=== PATIENT | female | born 1940 | race Caucasian/White ===

== ENCOUNTER 2017-12-09 06:05 | Day surgery (SDC) | payer MEDICARE, SELFPAY ==
--- NOTE | 2017-12-06 12:48 | POEE_ITS ---
History of Present Illness Chief Complaint: Progressive decreased vision, left eye Narrative: Patient is a 76-year-old lady who presented with complaints of progressive decreased vision in her left eye. She has a history of amblyopia of the right eye, with the right eye always having been her weaker eye. She now notes progressive decreased vision at both distance and near her left eye. She was noted to have a significant nuclear cataract in the left eye as well as a poorly dilating pupil, narrow angles, and high hyperopia. 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 The option of cataract surgery was offered to the patient and she wished to proceed. NOTE: The Chief Complaint, HPI, Past Medical History, Past Surgical History, Family History, Social History, Medications, and complete Ophthalmic Exam with detailed Assessment and Plan have already been documented in the patient's outpatient ophthalmic record and/or in the Primary Care Provider's pre-op history and physical, and are not covered again in detail here. PFSH Family History Mother Heart disease Father Heart disease Sister Heart disease Sister No problems noted. Sister No problems noted. Son No problems noted. Son No problems noted. Son No problems noted. Daughter No problems noted. Social History household members: other details: 2 current occupational status: retired frequency: 5-6 times per week duration: 15-30 minutes/day Smoking/Tobacco Use Status: Never alcohol intake: never substance use type: does not use john/jewish: Scientologist special john needs: No Surgical History section Ligation of fallopian tube Meds Home Medications Medication Instructions Recorded Confirmed Type meloxicam [Mobic] 15 mg PO DAILY PRN #30 tab-cap 09/05/17 12/04/17 History acetaminophen 500 mg tablet 500 mg PO TID tab 11/28/17 12/06/17 History gabapentin 100 mg capsule See Label Instructions PO DAILY 11/28/17 12/04/17 History cap hydrochlorothiazide 12.5 mg capsule 12.5 mg PO DAILY 11/28/17 12/04/17 History levothyroxine 75 mcg capsule 75 mcg PO DAILY 11/28/17 12/04/17 History ranitidine 150 mg tablet 150 mg PO DAILY 11/28/17 12/04/17 History triamcinolone acetonide 0.1 % 1 applic TP HS gm 11/28/17 12/04/17 History topical cream Allergies Allergy/AdvReac Type Severity Reaction Status Date / Time No Known Drug Allergies Allergy Unknown Unverified 10/22/17 10:44 Exam OCULAR EXAM:: Visual acuity at distance: 2050 right eye, 20/40 left eye Pupils: Pupils equal, round, and reactive without afferent pupillary defect IOP: 18 right eye, 16 left eye Extraocular Motility: Normal Pertinent Slit Lamp Findings: Significant for pupils dilating only to 4 mm in each eye. Narrow anterior chamber angles with intermediate anterior chamber depth. 2+ brunescent nuclear cataract is present OU. Dilated Funduscopic Examination: Disc cupping is 0.3 OD, 0.5 OS. Optic disks have normal color. The optic nerves have good perfusion and normal color. The retinal vasculature is normal without significant tortuosity or abnormality. The maculas are normal in appearance with normal contour and foveal reflex appropriate for age. The peripheral retina and vitreous are normal. BRIGHTNESS ACUITY TESTING (BAT):: Off left eye 20/40 Low: 20/50 Medium: 20/60 High: 20/70 Assessment and Plan (1) Anatomical narrow angle, left eye: Current visit: No Status: Acute High hyperopia with narrow angles, short axial length, and intermediate to shallow anterior chamber depth. Corneal endothelial protection during surgery will be obtained with dispersive viscoelastic. (2) Nuclear sclerotic cataract of left eye: Current visit: No Status: Acute Assessment: Visually significant cataract, left eye, with poorly dilating pupil, narrow angles, shallow anterior chamber, short axial length Plan: Cataract extraction with intraocular lens implantation, left eye, with pupillary expansion device and dispersive viscoelastic. Note: NOTE:: The details of the planned surgery, including the risks, indications, limitations,expectations,outcome and possible complications were explained to the patient. The patient understands the complications including, but not limited to: infection, hemorrhage, posterior dislocation of the lens or nuclear fragments which may require the intervention of a vitreoretinal surgeon, possible loss of the eye, or from anesthetic complications. The patient has been made aware of the option of not having surgery, that vision following surgery may not be equal to that prior to surgery, and that the planned surgery may not achieve the intended results. Following this discussion, which the patient appeared to understand, the patient wishes to proceed with cataract surgery with lens implantation of the affected eye to improve and maximize vision.
[2017-12-09 06:19] VITALS: BP 131/75; PULSE 76; RESP 20; TEMP 36.6; O2SAT 99
[2017-12-09] MEDS: Lidocaine 2% Jelly 6 ML SYR (07:31)
[2017-12-09] MEDS: Balanced Salt Soln.-PLUS 500 ML BAG (07:38)
[2017-12-09] MEDS: Lidocaine 1% Pres-Free 5 ML VIAL (07:38)
[2017-12-09] MEDS: Povidone-Iodine Ophth 30 ML BTL (07:57)
--- NOTE | 2017-12-09 08:05 | W.PM.DSUDISC ---
Discharge Plan Discharge Details Reason For Visit: CATARACT OS Attending Provider: Frank Cardoso Primary Care Provider: Sameera Elam Home Meds and New Rx's Prescriptions: No Action acetaminophen 500 mg tablet 500 mg PO TID RF: 0 triamcinolone acetonide 0.1 % cream 1 applic TP HS RF: 0 ranitidine HCl [Acid Cheese Production Supervisor (ranitidine)] 150 mg tablet 150 mg PO DAILY RF: 0 hydrochlorothiazide 12.5 mg capsule 12.5 mg PO DAILY RF: 0 gabapentin 100 mg capsule See Patient Comments PO DAILY RF: 0 levothyroxine 75 mcg capsule 75 mcg PO DAILY RF: 0 meloxicam [Mobic] 15 MG tablet 15 mg PO DAILY PRNQty: 30 RF: 0 Discharge Instructions Stand Alone Forms: Post-op Topical Cataract, Cristina Scott (DSU) DS: Diagnosis Discharge Diagnosis (1) Anatomical narrow angle, left eye: Status: Resolved (2) Nuclear sclerotic cataract of left eye: Status: Resolved
--- NOTE | 2017-12-09 08:06 | W.PM.OP ---
Date of service: 12/09/17 Time of Service: 08:06 Operative Note Date of procedure: 12/09/17 Pre-op diagnosis: Cataract, left eye, with poorly dilating pupil Post-op diagnosis: same Procedure: Cataract extraction by phacoemulsification with intraocular lens implantation, left eye, using pupillary expansion device Surgeon: Frank Cardoso Anesthesia: MAC and local (sub-tenon's anesthetic infiltration) Estimated blood loss (mL): 0 Pathology: none sent Complications: None Patient was transported to: same day Patient's condition: stable Implants: Ras [employer] Ras / [employer] Tecnis [id number] Indications: Progressive decreased vision, left eye Procedure Description: CATARACT SURGERY OPERATIVE REPORT PREOPERATIVE DIAGNOSIS: 1. Nuclear cataract, left eye 2. Poorly dilating pupil, left eye 3. High hyperopia with short axial length, narrow angles, shallow chamber POSTOPERATIVE DIAGNOSIS: Same OPERATION: Cataract extraction using phacoemulsification with posterior chamber intraocular lens implant, left eye. Pupillary dilation and iris stabilization using Malyugin Ring IOL; IOL Tool Turret Lathe Set Up Operator/Model: Ras & Ras / DEE Tecnis [id number] IOL Power: +25.50 diopters IOL Serial Number: [id number] Optic Diameter: 6.0 mm Haptic/Overall Diameter: 13.00 mm PHACO INFO:Dashawn Embrace Pet Insuranceurion Vision System with OZil and Active Fluidics Cumulative Dispersed Energy (CDE): 7.05 seconds SURGEON: Frank Cardoso MD, JADA ANESTHESIA:Monitored Anesthesia Care (MAC), with local sub-tenon's anesthetic infiltration COMPLICATIONS: None SPECIMENS: None INDICATIONS FOR PROCEDURE: The patient is a 77-year-old lady with history of high hyperopia and narrow angles who presented with complaints of diminished visual acuity in both eyes. She was noted to have visually significant nuclear cataracts in both eyes with narrow angles, shallow anterior chamber, and poorly dilating pupil. The option of cataract surgery was offered to the patient and she wished to proceed. PROCEDURE: The correct surgical eye was identified and marked as the left eye and the pupil was dilated in the preoperative area using mydriatics, cycloplegics, and NSAIDS (except in aspirin allergic patients). The dilated pupil size was only 4mm mm. Oral sedation was administered in the form of an Imprimis MKO Melt (midazolam 3mg/ketamine 25mg/ondansetron 2mg). The patient was brought to the operating room where cardiopulmonary monitoring was instituted and surgical time-out was performed, confirming the correct operative eye and IOL power. Topical anesthesia was administered and ophthalmic povidone-iodine 5% was instilled into the conjunctival fornices. Lidocaine gel was applied to the cornea and the saumya-ocular area was prepped with Betadine 10% solution and draped in the usual sterile fashion for intraocular surgery. Steri-strips were used to cover the lashes and lid margins and an adhesive eye drape was placed. Care was taken to isolate the lashes and lid margins under the Steri-strips and adhesive eye drape. A lid speculum was placed between the lids of the operative eye and the Nader-Sunitha operating microscope was maneuvered into position. Lee scissors were then used to make a conjunctival buttonhole approximately 6mm posterior to the limbus in the inferonasal quadrant. Blunt dissection was carried out to expose bare sclera, and a blunt-tipped sub-tenon?s anesthesia cannula was introduced and passed posteriorly along the globe where non-preserved plain lidocaine was injected into posterior sub-Tenon?s space. A sideport knife was used to make a paracentesis port at the 12:00 position and air was injected into anterior chamber, followed by Vision Blue, which was painted over the anterior capsule and then irrigated out with BSS. The anterior chamber was filled with Healon GV. A 2.4mm keratome knife was used to create a half-thickness groove at the limbus and then to construct a three-plane near-clear corneal tunnel extending 2.0mm into clear cornea at the 3:00 position. A 6.25mm Malyugin Ring was then inserted into the pupillary space and engaged with the Kuglen hook. A flap was raised on the anterior capsule and capsulorhexis forceps were used to complete a continuous curvilinear capsulorhexis of 5.0mm. Balanced salt solution was then used to perform cortical cleaving hydrodissection and nuclear hydrodelineation until the lens could be freely rotated within the capsular bag. The lens nucleus was then disassembled and removed within the capsular bag and iris plane using phacoemulsification. Residual cortical material was removed using the 45-degree angled silicone I/A tip with 0.3mm port. The posterior capsule was carefully polished to remove as much residual lens epithelial cells as safely possible. The capsular bag was then inflated and the anterior chamber deepened with viscoelastic. The lens implant described above was inserted into the capsular bag using the DEE [place] Injector. A Kuglen hook was used to dial the IOL into position. The Malyugin Ring was removed in the reverse order of its insertion. Residual viscoelastic was then removed first from posterior to the IOL, then from the anterior chamber using the I/A handpiece. The lens implant was noted to center nicely within the capsular bag. The incisions were stromally hydrated, and the anterior chamber was reformed using BSS. Then 0.4cc of moxifloxacin 1.5mg/ml were injected into the capsular bag and anterior chamber. The incisions were checked with a Weck spear and found to be secure. Several drops of ophthalmic povidone-iodine 5% were then applied to the eye followed by two drops of Imprimis combination moxifloxacin/dexamethasone solution. The drapes were removed and a clear plastic protective eye shield was placed over the eye. The patient was then returned to [facility] Surgery in stable condition.
[2017-12-09 08:35] VITALS: BP 111/61; PULSE 80; RESP 20; TEMP 36.6; O2SAT 96
== END 2017-12-09 08:40 | disposition home or self-care (01) ==
LOC: SUR 06:05
PROVIDERS: Visit Provider Ophthalmology
PROC: (CPT 66982; principal; 2017-12-09 07:30)
DX: H25.12 Age-related nuclear cataract, left eye (principal); H57.09 Other anomalies of pupillary function; H52.02 Hypermetropia, left eye; H40.032 Anatomical narrow angle, left eye; K21.9 Gastro-esophageal reflux disease without esophagitis
CPT/HCPCS: 66982; V2632

== ENCOUNTER 2017-12-23 06:42 | Day surgery (SDC) | payer MEDICARE, SELFPAY ==
--- NOTE | 2017-12-21 09:16 | W.PIPPEYE ---
History of Present Illness Chief Complaint: Progressive decreased vision, right eye Narrative: The patient is a 76-year-old lady with history of high hyperopia with narrow angles and intermediate anterior chamber depth with moderate cataracts. She noted progressive decreased vision at both distance and near and was having significant difficulty driving. She has a history of amblyopia of the right eye due to her high hyperopia. She underwent cataract surgery in the left eye on 12/09/2017 and postoperatively is doing well with best corrected vision of 20/20 in the left eye. She now presents for cataract surgery in the right eye. NOTE: The Chief Complaint, HPI, Past Medical History, Past Surgical History, Family History, Social History, Medications, and complete Ophthalmic Exam with detailed Assessment and Plan have already been documented in the patient's outpatient ophthalmic record and are not covered again in detail here. [facility] Family History Mother Heart disease Father Heart disease Sister Heart disease Sister No problems noted. Sister No problems noted. Son No problems noted. Son No problems noted. Son No problems noted. Daughter No problems noted. Social History household members: other details: 2 current occupational status: retired frequency: 5-6 times per week duration: 15-30 minutes/day Smoking/Tobacco Use Status: Former Tobacco Use alcohol intake: never substance use type: does not use john/latter day: [employer] special john needs: No Surgical History S/P cataract surgery (Resolved) section (12/09/17) Ligation of fallopian tube Meds Home Medications Medication Instructions Recorded Confirmed Type meloxicam [Mobic] 15 mg PO DAILY PRN #30 tab-cap 09/05/17 12/04/17 History acetaminophen 500 mg tablet 500 mg PO TID tab 11/28/17 12/06/17 History gabapentin 100 mg capsule See Label Instructions PO DAILY 11/28/17 12/09/17 History cap hydrochlorothiazide 12.5 mg capsule 12.5 mg PO DAILY 11/28/17 12/09/17 History levothyroxine 75 mcg capsule 75 mcg PO DAILY 11/28/17 12/09/17 History ranitidine 150 mg tablet 150 mg PO DAILY 11/28/17 12/09/17 History triamcinolone acetonide 0.1 % 1 applic TP HS gm 11/28/17 12/04/17 History topical cream Allergies Allergy/AdvReac Type Severity Reaction Status Date / Time No Known Drug Allergies Allergy Unknown Unverified 12/09/17 06:10 Exam OCULAR EXAM:: Visual acuity at distance: [] Pupils: [] IOP: [] Extraocular Motility: [] Pertinent Slit Lamp Findings: [] Dilated Funduscopic Examination: [] BRIGHTNESS ACUITY TESTING (BAT):: Off [] Low:[] Medium:[] High:[] Assessment and Plan (1) Anatomical narrow angle of right eye: Current visit: No Status: Acute (2) Nuclear sclerotic cataract of right eye: Current visit: No Status: Acute Note: NOTE:: The details of the planned surgery, including the risks, indications,limitations,expectations,outcome and possible complications were explained to the patient. The patient understands the complications including, but not limited to: infection, hemorrhage, posterior dislocation of the lens or nuclear fragments which may require the intervention of a vitreoretinal surgeon, possible loss of the eye, or from anesthetic complications. The patient has been made aware of the option of not having surgery, that vision following surgery may not be equal to that prior to surgery, and that the planned surgery may not achieve the intended results. Following this discussion, which the patient appeared to understand, the patient wishes to proceed with cataract surgery with lens implantation of the affected eye to improve and maximize vision.
--- NOTE | 2017-12-21 09:23 | POEE_ITS ---
History of Present Illness Chief Complaint: Progressive decreased vision, right eye Narrative: The patient is a 76-year-old lady with history of high hyperopia with narrow angles and intermediate anterior chamber depth with moderate cataracts. She noted progressive decreased vision at both distance and near and was having significant difficulty driving. She has a history of amblyopia of the right eye due to her high hyperopia. She underwent cataract surgery in the left eye on 12/09/2017 and postoperatively is doing well with best corrected vision of 20/20 in the left eye. She now presents for cataract surgery in the right eye. NOTE: The Chief Complaint, HPI, Past Medical History, Past Surgical History, Family History, Social History, Medications, and complete Ophthalmic Exam with detailed Assessment and Plan have already been documented in the patient's outpatient ophthalmic record and are not covered again in detail here. [facility] Family History Mother Heart disease Father Heart disease Sister Heart disease Sister No problems noted. Sister No problems noted. Son No problems noted. Son No problems noted. Son No problems noted. Daughter No problems noted. Social History household members: other details: 2 current occupational status: retired frequency: 5-6 times per week duration: 15-30 minutes/day Smoking/Tobacco Use Status: Former Tobacco Use alcohol intake: never substance use type: does not use john/baptist: Spiritism special john needs: No Surgical History S/P cataract surgery (Resolved) section (12/09/17) Ligation of fallopian tube Meds Home Medications Medication Instructions Recorded Confirmed Type meloxicam [Mobic] 15 mg PO DAILY PRN #30 tab-cap 09/05/17 12/04/17 History acetaminophen 500 mg tablet 500 mg PO TID tab 11/28/17 12/06/17 History gabapentin 100 mg capsule See Label Instructions PO DAILY 11/28/17 12/09/17 History cap hydrochlorothiazide 12.5 mg capsule 12.5 mg PO DAILY 11/28/17 12/09/17 History levothyroxine 75 mcg capsule 75 mcg PO DAILY 11/28/17 12/09/17 History ranitidine 150 mg tablet 150 mg PO DAILY 11/28/17 12/09/17 History triamcinolone acetonide 0.1 % 1 applic TP HS gm 11/28/17 12/04/17 History topical cream Allergies Allergy/AdvReac Type Severity Reaction Status Date / Time No Known Drug Allergies Allergy Unknown Unverified 12/09/17 06:10 Exam OCULAR EXAM:: Visual acuity at distance: [] Pupils: [] IOP: [] Extraocular Motility: [] Pertinent Slit Lamp Findings: [] Dilated Funduscopic Examination: [] BRIGHTNESS ACUITY TESTING (BAT):: Off [] Low:[] Medium:[] High:[] Assessment and Plan (1) Anatomical narrow angle of right eye: Current visit: No Status: Acute (2) Nuclear sclerotic cataract of right eye: Current visit: No Status: Acute Note: NOTE:: The details of the planned surgery, including the risks, indications, limitations,expectations,outcome and possible complications were explained to the patient. The patient understands the complications including, but not limited to: infection, hemorrhage, posterior dislocation of the lens or nuclear fragments which may require the intervention of a vitreoretinal surgeon, possible loss of the eye, or from anesthetic complications. The patient has been made aware of the option of not having surgery, that vision following surgery may not be equal to that prior to surgery, and that the planned surgery may not achieve the intended results. Following this discussion, which the patient appeared to understand, the patient wishes to proceed with cataract surgery with lens implantation of the affected eye to improve and maximize vision.
--- NOTE | 2017-12-21 09:43 | W.PIPPEYE ---
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 She noted progressive decreased vision in both eyes at both distance and near. She underwent cataract surgery on the left eye on 12/09/2017. Postoperatively she has regained best corrected vision of 20/20 in the left eye. She now presents for cataract surgery in the right eye. NOTE: The Chief Complaint, HPI, Past Medical History, Past Surgical History, Family History, Social History, Medications, and complete Ophthalmic Exam with detailed Assessment and Plan have already been documented in the patient's outpatient ophthalmic record and are not covered again in detail here. [facility] Family History Mother Heart disease Father Heart disease Sister Heart disease Sister No problems noted. Sister No problems noted. Son No problems noted. Son No problems noted. Son No problems noted. Daughter No problems noted. Medical History Nuclear sclerotic cataract of right eye (Acute) Anatomical narrow angle of right eye (Acute) Nuclear sclerotic cataract of left eye (Resolved 12/09/17) Anatomical narrow angle, left eye (Resolved 12/09/17) Social History household members: other details: 2 current occupational status: retired frequency: 5-6 times per week duration: 15-30 minutes/day Smoking/Tobacco Use Status: Former Tobacco Use alcohol intake: never substance use type: does not use john/yazdanism: Pentecostal special john needs: No Surgical History S/P cataract surgery (Resolved 12/09/17) section Ligation of fallopian tube Meds Home Medications Medication Instructions Recorded Confirmed Type meloxicam [Mobic] 15 mg PO DAILY PRN #30 tab-cap 09/05/17 12/04/17 History acetaminophen 500 mg tablet 500 mg PO TID tab 11/28/17 12/06/17 History gabapentin 100 mg capsule See Label Instructions PO DAILY 11/28/17 12/09/17 History cap hydrochlorothiazide 12.5 mg capsule 12.5 mg PO DAILY 11/28/17 12/09/17 History levothyroxine 75 mcg capsule 75 mcg PO DAILY 11/28/17 12/09/17 History ranitidine 150 mg tablet 150 mg PO DAILY 11/28/17 12/09/17 History triamcinolone acetonide 0.1 % 1 applic TP HS gm 11/28/17 12/04/17 History topical cream Allergies Allergy/AdvReac Type Severity Reaction Status Date / Time No Known Drug Allergies Allergy Unknown Unverified 12/09/17 06:10 Exam OCULAR EXAM:: Visual acuity at distance: Corrected visual acuity 20/50 right eye, 20/20 left eye Pupils: Pupils equal, round, and reactive without afferent pupillary defect IOP: 18 OD, 16 OS Extraocular Motility: Normal Pertinent Slit Lamp Findings: Significant for pupils dilating to 4 mm OU. Narrow anterior chamber angle with intermediate anterior chamber depth in the right eye with 2-3+ nuclear cataract. The left eye has a well-positioned PCIOL with clear posterior capsule. Dilated Funduscopic Examination: Disc cupping is 0.3 OD 0.5 OS with good color. The optic nerves have good perfusion and normal color. The retinal vasculature is normal without significant tortuosity or abnormality. The maculas are normal in appearance with normal contour and foveal reflex appropriate for age. The peripheral retina and vitreous are normal. BRIGHTNESS ACUITY TESTING (BAT):: Off right eye 20/50 Low: 20/50 Medium: 20/60 High: 20/70 Assessment and Plan (1) Nuclear sclerotic cataract of right eye: Current visit: No Status: Acute Assessment: Visually significant cataract, right eye. Plan: Cataract extraction with intraocular lens implantation, right eye (2) Nuclear sclerotic cataract of left eye: Current visit: No Status: Resolved (3) Anatomical narrow angle, left eye: Current visit: No Status: Resolved (4) Anatomical narrow angle of right eye: Current visit: No Status: Acute Note: NOTE:: The details of the planned surgery, including the risks, indications,limitations,expectations,outcome and possible complications were explained to the patient. The patient understands the complications including, but not limited to: infection, hemorrhage, posterior dislocation of the lens or nuclear fragments which may require the intervention of a vitreoretinal surgeon, possible loss of the eye, or from anesthetic complications. The patient has been made aware of the option of not having surgery, that vision following surgery may not be equal to that prior to surgery, and that the planned surgery may not achieve the intended results. Following this discussion, which the patient appeared to understand, the patient wishes to proceed with cataract surgery with lens implantation of the affected eye to improve and maximize vision.
--- NOTE | 2017-12-21 09:51 | POEE_ITS ---
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 She noted progressive decreased vision in both eyes at both distance and near. She underwent cataract surgery on the left eye on 12/09/2017. Postoperatively she has regained best corrected vision of 20/20 in the left eye. She now presents for cataract surgery in the right eye. NOTE: The Chief Complaint, HPI, Past Medical History, Past Surgical History, Family History, Social History, Medications, and complete Ophthalmic Exam with detailed Assessment and Plan have already been documented in the patient's outpatient ophthalmic record and are not covered again in detail here. [facility] Family History Mother Heart disease Father Heart disease Sister Heart disease Sister No problems noted. Sister No problems noted. Son No problems noted. Son No problems noted. Son No problems noted. Daughter No problems noted. Medical History Nuclear sclerotic cataract of right eye (Acute) Anatomical narrow angle of right eye (Acute) Nuclear sclerotic cataract of left eye (Resolved 12/09/17) Anatomical narrow angle, left eye (Resolved 12/09/17) Social History household members: other details: 2 current occupational status: retired frequency: 5-6 times per week duration: 15-30 minutes/day Smoking/Tobacco Use Status: Former Tobacco Use alcohol intake: never substance use type: does not use john/spiritism: Hinduism special john needs: No Surgical History S/P cataract surgery (Resolved 12/09/17) section Ligation of fallopian tube Meds Home Medications Medication Instructions Recorded Confirmed Type meloxicam [Mobic] 15 mg PO DAILY PRN #30 tab-cap 09/05/17 12/04/17 History acetaminophen 500 mg tablet 500 mg PO TID tab 11/28/17 12/06/17 History gabapentin 100 mg capsule See Label Instructions PO DAILY 11/28/17 12/09/17 History cap hydrochlorothiazide 12.5 mg capsule 12.5 mg PO DAILY 11/28/17 12/09/17 History levothyroxine 75 mcg capsule 75 mcg PO DAILY 11/28/17 12/09/17 History ranitidine 150 mg tablet 150 mg PO DAILY 11/28/17 12/09/17 History triamcinolone acetonide 0.1 % 1 applic TP HS gm 11/28/17 12/04/17 History topical cream Allergies Allergy/AdvReac Type Severity Reaction Status Date / Time No Known Drug Allergies Allergy Unknown Unverified 12/09/17 06:10 Exam OCULAR EXAM:: Visual acuity at distance: Corrected visual acuity 20/50 right eye , 20/20 left eye Pupils: Pupils equal, round, and reactive without afferent pupillary defect IOP: 18 OD, 16 OS Extraocular Motility: Normal Pertinent Slit Lamp Findings: Significant for pupils dilating to 4 mm OU. Narrow anterior chamber angle with intermediate anterior chamber depth in the right eye with 2-3+ nuclear cataract. The left eye has a well-positioned PCIOL with clear posterior capsule. Dilated Funduscopic Examination: Disc cupping is 0.3 OD 0.5 OS with good color. The optic nerves have good perfusion and normal color. The retinal vasculature is normal without significant tortuosity or abnormality. The maculas are normal in appearance with normal contour and foveal reflex appropriate for age. The peripheral retina and vitreous are normal. BRIGHTNESS ACUITY TESTING (BAT):: Off right eye 20/50 Low: 20/50 Medium: 20/60 High: 20/70 Assessment and Plan (1) Nuclear sclerotic cataract of right eye: Current visit: No Status: Acute Assessment: Visually significant cataract, right eye. Plan: Cataract extraction with intraocular lens implantation, right eye (2) Nuclear sclerotic cataract of left eye: Current visit: No Status: Resolved (3) Anatomical narrow angle, left eye: Current visit: No Status: Resolved (4) Anatomical narrow angle of right eye: Current visit: No Status: Acute Note: NOTE:: The details of the planned surgery, including the risks, indications, limitations,expectations,outcome and possible complications were explained to the patient. The patient understands the complications including, but not limited to: infection, hemorrhage, posterior dislocation of the lens or nuclear fragments which may require the intervention of a vitreoretinal surgeon, possible loss of the eye, or from anesthetic complications. The patient has been made aware of the option of not having surgery, that vision following surgery may not be equal to that prior to surgery, and that the planned surgery may not achieve the intended results. Following this discussion, which the patient appeared to understand, the patient wishes to proceed with cataract surgery with lens implantation of the affected eye to improve and maximize vision.
[2017-12-23 06:59] VITALS: BP 139/80; PULSE 80; RESP 16; TEMP 36; O2SAT 100
[2017-12-23] MEDS: Lidocaine 2% Jelly 6 ML SYR (08:20)
[2017-12-23] MEDS: Lidocaine 1% Pres-Free 5 ML VIAL (08:24)
[2017-12-23] MEDS: Balanced Salt Soln.-PLUS 500 ML BAG (08:52)
[2017-12-23] MEDS: Povidone-Iodine Ophth 30 ML BTL (08:54)
--- NOTE | 2017-12-23 09:01 | PDOC.DSDIS_ITS ---
Discharge Plan Discharge Details Attending Provider: Frank Cardoso Primary Care Provider: Sameera Elam Home Meds and New Rx's Prescriptions: No Action acetaminophen 500 mg tablet 500 mg PO TID RF: 0 triamcinolone acetonide 0.1 % cream 1 applic TP HS RF: 0 ranitidine HCl [Acid Molecular Modeler (ranitidine)] 150 mg tablet 150 mg PO DAILY RF: 0 hydrochlorothiazide 12.5 mg capsule 12.5 mg PO DAILY RF: 0 gabapentin 100 mg capsule See Patient Comments PO DAILY RF: 0 levothyroxine 75 mcg capsule 75 mcg PO DAILY RF: 0 meloxicam [Mobic] 15 MG tablet 15 mg PO DAILY PRNQty: 30 RF: 0 Discharge Instructions Stand Alone Forms: Post-op Topical Cataract, Cristina Scott (DSU) DS: Diagnosis Discharge Diagnosis (1) Nuclear sclerotic cataract of right eye: Status: Resolved (2) Nuclear sclerotic cataract of left eye: Status: Resolved (3) Anatomical narrow angle, left eye: Status: Resolved (4) Anatomical narrow angle of right eye: Status: Resolved
--- NOTE | 2017-12-23 09:01 | W.PM.OP ---
Date of service: 12/23/17 Time of Service: 09:01 Operative Note PRE-OP DIAGNOSIS: Cataract, right eye, with poorly dilating pupil POST-OP DIAGNOSIS: same PROCEDURE: 1. Cataract extraction by phacoemulsification with intraocular lens implantation, right eye, with pupillary expansion device SURGEON: Frank Cardoso ANESTHESIA: MAC (with local sub-tenon's anesthetic injection) PATHOLOGY: none sent COMPLICATIONS: None Patient was transported to: same day Patient's condition: stable Implants: Ras and Ras / [employer] Tecnis [id number] Indications: Progressive decreased vision due to cataract, right eye, with poorly dilating pupil Procedure Description: CATARACT SURGERY OPERATIVE REPORT PREOPERATIVE DIAGNOSIS: 1. Nuclear cataract, right eye, symptomatic 2. Poorly dilating pupil, right eye 3. Short axial length with narrow angles and shallow anterior chamber POSTOPERATIVE DIAGNOSIS: Same OPERATION: 1. Cataract extraction using phacoemulsification with posterior chamber intraocular lens implant, right eye. 2. Pupillary dilation and iris stabilization using Malyugin Ring IOL: IOL Dairy Management Specialist/Model: Ras & Ras / DEE Tecnis [id number] IOL Power: + 26.0 diopters IOL Serial Number: [id number] Optic Diameter: 6.0mm Haptic/Overall Diameter: 13.0mm PHACO INFO: Dashawn [employer]ion Vision System with OZil and Active Fluidics Cumulative Dispersed Energy (CDE): 7.89 seconds SURGEON: Frank Cardoso MD, JADA ANESTHESIA:Monitored Anesthesia Care (MAC), with local sub-tenon's anesthetic infiltration COMPLICATIONS: None SPECIMENS: None INDICATIONS FOR PROCEDURE: The patient is a 77-year-old lady with history of high hyperopia short axial length, and narrow angles with symptomatic bilateral cataracts. She was significantly symptomatic that she desires cataract surgery and attempt to improve and maximize her vision. She is Ardie undergone cataract surgery in her left eye on 1717. She now presents for cataract surgery of the right eye. PROCEDURE: The correct surgical eye was identified and marked as the right eye and the pupil was dilated in the preoperative area using mydriatics, cycloplegics, and NSAIDS (except in aspirin allergic patients). The dilated pupil size was 4.0 mm. Oral sedation was administered in the form of an Imprimis MKO Melt (midazolam 3mg/ketamine 25mg/ondansetron 2mg). The patient was brought to the operating room where cardiopulmonary monitoring was instituted and surgical time-out was performed, confirming the correct operative eye and IOL power. Topical anesthesia was administered and ophthalmic povidone-iodine 5% was instilled into the conjunctival fornices. Lidocaine gel was applied to the cornea and the saumya-ocular area was prepped with Betadine 10% solution and draped in the usual sterile fashion for intraocular surgery. Steri-strips were used to cover the lashes and lid margins and an adhesive eye drape was placed. Care was taken to isolate the lashes and lid margins under the Steri-strips and adhesive eye drape. A lid speculum was placed between the lids of the operative eye and the Nader-Sunitha operating microscope was maneuvered into position. Lee scissors were then used to make a conjunctival buttonhole approximately 6mm posterior to the limbus in the inferonasal quadrant. Blunt dissection was carried out to expose bare sclera, and a blunt-tipped sub-tenon?s anesthesia cannula was introduced and passed posteriorly along the globe where non-preserved plain lidocaine was injected into posterior sub-Tenon?s space. A sideport knife was used to make a paracentesis port at the 7:00 position and air was injected into anterior chamber, followed by Vision Blue, which was painted over the anterior capsule and then irrigated out with BSS. The anterior chamber was filled with Healon GV. A 2.4mm keratome knife was used to create a half-thickness groove at the limbus and then to construct a three-plane near-clear corneal tunnel extending 2.0mm into clear cornea at the 10:00 position. A 6.25 mm Malyugin Ring was then inserted into the pupillary space and engaged with the Kuglen hook. A flap was raised on the anterior capsule and capsulorhexis forceps were used to complete a continuous curvilinear capsulorhexis of 4.5 mm. Balanced salt solution was then used to perform cortical cleaving hydrodissection and nuclear hydrodelineation until the lens could be freely rotated within the capsular bag. The lens nucleus was then disassembled and removed within the capsular bag and iris plane using phacoemulsification. Residual cortical material was removed using the 45-degree angled silicone I/A tip with 0.3mm port. The posterior capsule was carefully polished to remove as much residual lens epithelial cells as safely possible. The capsular bag was then inflated and the anterior chamber deepened with viscoelastic. The lens implant described above was inserted into the capsular bag using the DEE [place] Injector. A Kuglen hook was used to dial the IOL into position. The Malyugin Ring was removed in the reverse order of its insertion. Residual viscoelastic was then removed first from posterior to the IOL, then from the anterior chamber using the I/A handpiece. The lens implant was noted to center nicely within the capsular bag. The incisions were stromally hydrated, and the anterior chamber was reformed using BSS. Then 0.4cc of moxifloxacin 1.5mg/ml were injected into the capsular bag and anterior chamber. The incisions were checked with a Weck spear and found to be secure. Several drops of ophthalmic povidone-iodine 5% were then applied to the eye followed by two drops of Imprimis combination moxifloxacin/dexamethasone solution. The drapes were removed and a clear plastic protective eye shield was placed over the eye. The patient was then returned to Same Day Surgery in stable condition.
--- NOTE | 2017-12-23 09:06 | ROE_ITS ---
Date of service: 12/23/17 Time of Service: 09:01 Operative Note PRE-OP DIAGNOSIS: Cataract, right eye, with poorly dilating pupil POST-OP DIAGNOSIS: same PROCEDURE: 1. Cataract extraction by phacoemulsification with intraocular lens implantation, right eye, with pupillary expansion device SURGEON: Frank Cardoso ANESTHESIA: MAC (with local sub-tenon's anesthetic injection) PATHOLOGY: none sent COMPLICATIONS: None Patient was transported to: same day Patient's condition: stable Implants: Ras and Ras / [employer] Opt[employer] Tecnis [id number] Indications: Progressive decreased vision due to cataract, right eye, with poorly dilating pupil Procedure Description: CATARACT SURGERY OPERATIVE REPORT PREOPERATIVE DIAGNOSIS: 1. Nuclear cataract, right eye, symptomatic 2. Poorly dilating pupil, right eye 3. Short axial length with narrow angles and shallow anterior chamber POSTOPERATIVE DIAGNOSIS: Same OPERATION: 1. Cataract extraction using phacoemulsification with posterior chamber intraocular lens implant, right eye. 2. Pupillary dilation and iris stabilization using Malyugin Ring IOL: IOL Travel Information Center Supervisor/Model: Ras & Ras / DEE Tecnis [id number] IOL Power: + 26.0 diopters IOL Serial Number: [id number] Optic Diameter: 6.0mm Haptic/Overall Diameter: 13.0mm PHACO INFO: Dashawn [employer] Vision System with OZil and Active Fluidics Cumulative Dispersed Energy (CDE): 7.89 seconds SURGEON: Frank Cardoso MD, JADA ANESTHESIA:Monitored Anesthesia Care (MAC), with local sub-tenon's anesthetic infiltration COMPLICATIONS: None SPECIMENS: None INDICATIONS FOR PROCEDURE: The patient is a 77-year-old lady with history of high hyperopia short axial length, and narrow angles with symptomatic bilateral cataracts. She was significantly symptomatic that she desires cataract surgery and attempt to improve and maximize her vision. She is Ardie undergone cataract surgery in her left eye on 1717. She now presents for cataract surgery of the right eye. PROCEDURE: The correct surgical eye was identified and marked as the right eye and the pupil was dilated in the preoperative area using mydriatics, cycloplegics, and NSAIDS (except in aspirin allergic patients). The dilated pupil size was 4.0 mm. Oral sedation was administered in the form of an Imprimis MKO Melt (midazolam 3mg/ketamine 25mg/ondansetron 2mg). The patient was brought to the operating room where cardiopulmonary monitoring was instituted and surgical time-out was performed, confirming the correct operative eye and IOL power. Topical anesthesia was administered and ophthalmic povidone-iodine 5% was instilled into the conjunctival fornices. Lidocaine gel was applied to the cornea and the saumya-ocular area was prepped with Betadine 10% solution and draped in the usual sterile fashion for intraocular surgery. Steri-strips were used to cover the lashes and lid margins and an adhesive eye drape was placed. Care was taken to isolate the lashes and lid margins under the Steri-strips and adhesive eye drape. A lid speculum was placed between the lids of the operative eye and the Nader-Sunitha operating microscope was maneuvered into position. Lee scissors were then used to make a conjunctival buttonhole approximately 6mm posterior to the limbus in the inferonasal quadrant. Blunt dissection was carried out to expose bare sclera, and a blunt-tipped sub-tenon? s anesthesia cannula was introduced and passed posteriorly along the globe where non-preserved plain lidocaine was injected into posterior sub-Tenon?s space. A sideport knife was used to make a paracentesis port at the 7:00 position and air was injected into anterior chamber, followed by Vision Blue, which was painted over the anterior capsule and then irrigated out with BSS. The anterior chamber was filled with Healon GV. A 2.4mm keratome knife was used to create a half-thickness groove at the limbus and then to construct a three-plane near-clear corneal tunnel extending 2.0mm into clear cornea at the 10:00 position. A 6.25 mm Malyugin Ring was then inserted into the pupillary space and engaged with the Kuglen hook. A flap was raised on the anterior capsule and capsulorhexis forceps were used to complete a continuous curvilinear capsulorhexis of 4.5 mm. Balanced salt solution was then used to perform cortical cleaving hydrodissection and nuclear hydrodelineation until the lens could be freely rotated within the capsular bag. The lens nucleus was then disassembled and removed within the capsular bag and iris plane using phacoemulsification. Residual cortical material was removed using the 45-degree angled silicone I/A tip with 0.3mm port. The posterior capsule was carefully polished to remove as much residual lens epithelial cells as safely possible. The capsular bag was then inflated and the anterior chamber deepened with viscoelastic. The lens implant described above was inserted into the capsular bag using the DEE [place] Injector. A Kuglen hook was used to dial the IOL into position. The Malyugin Ring was removed in the reverse order of its insertion. Residual viscoelastic was then removed first from posterior to the IOL, then from the anterior chamber using the I/A handpiece. The lens implant was noted to center nicely within the capsular bag. The incisions were stromally hydrated , and the anterior chamber was reformed using BSS. Then 0.4cc of moxifloxacin 1.5mg/ml were injected into the capsular bag and anterior chamber. The incisions were checked with a Weck spear and found to be secure. Several drops of ophthalmic povidone-iodine 5% were then applied to the eye followed by two drops of Imprimis combination moxifloxacin/dexamethasone solution. The drapes were removed and a clear plastic protective eye shield was placed over the eye. The patient was then returned to Same Day Surgery in stable condition.
[2017-12-23 09:26] VITALS: BP 118/65; PULSE 72; RESP 16; TEMP 36.5; O2SAT 97
== END 2017-12-23 09:37 | disposition home or self-care (01) ==
LOC: SUR 06:42
PROVIDERS: Visit Provider Ophthalmology
PROC: (CPT 66982; principal; 2017-12-23 08:30)
DX: H25.11 Age-related nuclear cataract, right eye (principal); H57.09 Other anomalies of pupillary function; H40.031 Anatomical narrow angle, right eye; H52.01 Hypermetropia, right eye; Z98.42 Cataract extraction status, left eye; Z96.1 Presence of intraocular lens
CPT/HCPCS: 66982; V2632

== ENCOUNTER 2018-09-11 01:20 | Outpatient (CLI) | payer MEDICARE, SELFPAY ==
[2018-09-11 09:01] LABS: ALT 22 U/L (12-78); AST 15 U/L (15-37); Alkaline Phosphatase 71 U/L (46-116); Anion Gap 9.1 mmol/L (3-11); BUN 20 mg/dL (7-18); Bilirubin, Total 0.7 mg/dL (0.2-1.0); CO2 27.9 mmol/L (21.0-32.0); CREATININE 0.81 mg/dL (0.55-1.02); Calcium 9.2 mg/dL (8.5-10.1); Chloride 104 mmol/L (98-107); Glucose 112 mg/dL (70-100); Potassium 3.6 mmol/L (3.5-5.1); Sodium 141 mmol/L (136-145); TSH (W/Ref FT4) 1.66 uIU/mL (0.358-3.74); Total Protein 7.3 g/dL (6.4-8.2)
== END 2018-09-11 01:40 ==
DX: E03.9 Hypothyroidism, unspecified (principal); I10 Essential (primary) hypertension; K21.9 Gastro-esophageal reflux disease without esophagitis
CPT/HCPCS: 36415; 80053; 84443

== ENCOUNTER 2019-02-26 10:22 | Outpatient (CLI) | payer MEDICARE, MEDICAID, SELFPAY ==
--- NOTE | 2019-02-26 10:12 | DI.RAD_ITS ---
EXAM: XR HAND RT COMPLETE INDICATION: Right hand pain along MCP joints. COMPARISON: No exams were available for comparison TECHNIQUE: 2D digital imaging was performed. FINDINGS: There is [id number] narrowing of the interphalangeal joints of the fingers, greatest at the dis odalis interphalangeal joints of the middle and index fingers. There is mild spurring at the bases of t he metacarpal phalangeal joints with no joint space narrowing. No bony erosions are seen. 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
--- NOTE | 2019-02-26 10:15 | DI.RAD_ITS ---
EXAM: XR HAND LT COMPLETE INDICATION: Left hand pain along MCP. COMPARISON: XR HAND RT COMPLETE from 02/26/2019 TECHNIQUE: 2D digital imaging was performed. FINDINGS: No fracture or dislocation is seen. There are mild degenerative changes of the interphalangeal joint s. No bony erosions are seen. IMPRESSION: Mild degenerative changes.
== END 2019-02-26 10:42 ==
PROVIDERS: Visit Provider Student in an Organized Health Care Education/Training Program
DX: M79.641 Pain in right hand (principal); M79.642 Pain in left hand; M19.041 Primary osteoarthritis, right hand; M19.042 Primary osteoarthritis, left hand
CPT/HCPCS: 20600; 99203; 99214; 73130; J1030

== ENCOUNTER 2019-05-31 10:21 | Emergency (ER) | payer MEDICARE, SELFPAY ==
[2019-05-31 10:28] VITALS: BP 159/69; PULSE 90; RESP 16; TEMP 36.3; O2SAT 99
--- NOTE | 2019-05-31 10:31 | ED.GENADUL_ITS ---
Discharge Plan Disposition Patient Disposition: HOME Condition: Stable Discharge Details Chief Complaint: AnimalBite Clinical Impression: Dog bite of forearm Primary Care Provider: Sameera Elam ED Provider: Dee Dee Kwok Home Meds and New Rx's Prescriptions: New amoxicillin-pot clavulanate [Augmentin] 875-125 mg tablet 1 tab PO BID 9 Days Qty: 18 RF: 0 Continued acetaminophen 500 mg tablet 500 mg PO TID RF: 0 gabapentin 100 mg capsule See Rx Instructions PO DAILY RF: 0 hydrochlorothiazide 12.5 mg capsule 12.5 mg PO DAILY Qty: 90 RF: 4 levothyroxine 75 mcg capsule 75 mcg PO DAILY Qty: 90 RF: 4 triamcinolone acetonide 0.1 % cream 1 applic TP BID PRN (Reason: vulvanitis) Qty: 80 RF: 1 Discharge Instructions Instructions: Animal Bite (ED) Additional Instructions: Take the antibiotics until finished. Keep wound clean and dry. Cover wound with bandage if risk of contamination. Otherwise you can keep the wound open to air if resting at home to allow edges to dry and heal. Return to the emergency department in 7 days for suture removal. Return to the emergency department or or your primary care doctor earlier at any time if you develop any worsening or concerning symptoms such as fever, redness, worsening pain and swelling. Discharge Data Discharge Physician: Dee Dee Kwok Medical Decision Making 78-year-old female presents with dog bites to right forearm sustained by a neighbor's dog prior to arrival. Dog is up-to-date on his shots. Patient states he was walking and passing the neighbors lawn when the dog ran towards her and bit her through her coat. She is two flap lacerations to the right dorsal forearm, mid laceration extends into the deep dermis and is gaping open. Distal laceration extends through superficial dermis and is much smaller. Patient referred for x-ray which was negative for fracture or foreign body. Her tetanus is up-to-date. Lacerations were irrigated extensively. The mid forearm laceration flap was removed and edges loosely approximated with 2 sutures to close gaping wound but allow for drainage in case of risk of infection with dog bite. Distal laceration covered with Steri-Strip and nonadherent dressing. She was given 1 dose of Augmentin here and 1 for home as well as prescription. Advised to return to the ED in 7 days for suture removal. Advised on proper wound care. Usual and customary return precautions given prior to discharge. Medical Records Medical records reviewed: Yes I reviewed the patient's medical records. Imaging Data Radiologic Study: Radiologist's impression: XR Right Forearm Exam date and time: 05/31/2019 11:06 AM Age: 78 years old Clinical indication: Other: S/P dog bite to mid forearm, R/O fx/foreign body TECHNIQUE: Imaging protocol: XR Right forearm. Views: 2 views. COMPARISON: No relevant prior studies available. FINDINGS: Bones/joints: Degenerative changes in the radiocarpal joint Degenerative changes in the elbow Small well corticated avulsion fracture adjacent to the medial condyle There is no evidence of acute fracture.There is no evidence of malalignment or dislocation. Soft tissues: No foreign body identified. IMPRESSION: 1. No foreign body identified. 2. There is no evidence of acute fracture.There is no evidence of malalignment or dislocation. HPI General Mode of arrival: ambulatory . Date/Time Provider Initiated Documentation: 05/31/19 10:25 . Limitations to Documentation: no limitations . Information obtained by: patient . History of Present Illness 78 year old F presents to the emergency department with the chief complaint of dog bite R forearm, and is localized to the right and upper extremity (forearm). Patient extremity and proximal. Patient started experiencing this hour(s) (1) and it has been constant. No relieving factors improve symptom(s), No exacerbating factors reported . Patient notes no other symptoms.. Patient did receive the following treatments prior to arrival, other (tylenol) Related Data Home Medications Medication Instructions Recorded Confirmed acetaminophen 500 mg tablet 500 mg PO TID tab 11/28/17 05/31/19 gabapentin 100 mg capsule See Rx Instructions PO DAILY cap 11/28/17 05/31/19 hydrochlorothiazide 12.5 mg capsule 12.5 mg PO DAILY #90 cap 09/03/18 05/31/19 levothyroxine 75 mcg capsule 75 mcg PO DAILY #90 cap 09/03/18 05/31/19 triamcinolone acetonide 0.1 % 1 applic TP BID PRN #80 gm 09/03/18 05/31/19 topical cream amoxicillin-pot clavulanate 1 tab PO BID 9 Days #18 tab 05/31/19 [Augmentin] Previous Rx's Medication Instructions Recorded hydrochlorothiazide 12.5 mg capsule 12.5 mg PO DAILY #90 cap 09/03/18 levothyroxine 75 mcg capsule 75 mcg PO DAILY #90 cap 09/03/18 triamcinolone acetonide 0.1 % 1 applic TP BID PRN #80 gm 09/03/18 topical cream amoxicillin-pot clavulanate 1 tab PO BID 9 Days #18 tab 05/31/19 [Augmentin] Allergies Allergy/AdvReac Type Severity Reaction Status Date / Time No Known Drug Allergies Allergy Unknown Verified 05/31/19 10:30 General Stated Complaint: AnimalBite GAGE: 4 Review of Systems All systems reviewed & are unremarkable except as noted in HPI and below Constitutional Constitutional: Reports as per HPI, Denies chills and Denies fever(s) Eyes Eyes: Denies blurry vision ENT Ears, Nose, Mouth, and Throat: Denies dizziness, Denies sore throat and Denies throat swelling Cardiovascular Cardiovascular: Denies chest pain and Denies dyspnea Respiratory Respiratory: Denies cough and Denies dyspnea Gastrointestinal Gastrointestinal: Denies abdominal pain, Denies diarrhea and Denies vomiting Genitourinary Genitourinary: Denies hematuria and Denies dysuria Musculoskeletal Musculoskeletal: Denies back pain and Denies numbness Integumentary/Breasts Skin/Breast: Reports lesions and Denies rash Neurologic Neurologic: Denies dizziness, Denies focal weakness and Denies numbness Allergic/Immunologic Allergic/Immunologic: Denies throat swelling COUNTS INCLUDE 234 BEDS AT THE [facility] Social History Smoking/Tobacco Use Status: Former Tobacco Use Alcohol Intake: never Drug use: Never Substance use type: does not use Counseling given: No Caregiver/Support person: No Household members: spouse Housing: house Do you need help understanding health information?: Rarely Pets and animals: Yes Pets and animals: cat(s) and dog(s) Sexually active: No Current gender identity: female What is your relationship status?: How often do you talk on the phone with friends or family?: three or more times per week How often do you get together with friends or relatives?: twice per week How often do you attend pentecostalism or zoroastrian services?: decline to answer Do you belong to any clubs or organized social groups?: no Panel score (0-1 are the most socially isolated patients): 2 What type of physical activity do you participate in: walking Duration: 15-30 minutes/day Frequency: daily Janessa/Moravian: Episcopal Special janessa needs: No Seatbelt use: always Helmet use: No 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 There is also an additional 1 cm flap laceration noted to right dorsal distal forearm. There is no obvious foreign body, bony deformity, edema, ecchymosis or erythema noted to forearm. Right radial and ulnar pulses intact. Psych Appearance: grossly normal Affect: normal affect Course Vital Signs Vital signs: Vital Signs Temperature 97.3 F L 05/31/19 10:28 Pulse 90 05/31/19 10:28 Respiratory Rate 16 05/31/19 10:28 Blood Pressure 159/69 H 05/31/19 10:28 Pulse Oximetry 99 05/31/19 10:28 Temperature 97.3 F L 05/31/19 10:28 Temperature Source Skin 05/31/19 10:28 Pulse 90 05/31/19 10:28 Respiratory Rate 16 05/31/19 10:28 Respiratory Effort 05/31/19 10:28 Blood Pressure 159/69 H 05/31/19 10:28 Blood Pressure Position Sitting 05/31/19 10:28 Pulse Oximetry 99 05/31/19 10:28 Oxygen Delivery Method Room Air 05/31/19 10:28 Oxygen Flow Rate 0 05/31/19 10:28 Pain Level 6 05/31/19 10:28 Procedures Laceration Laceration 1: Site: upper extremity Side (If applicable): right Size (cm): 3 Description: linear and flap Depth: simple, single layer Local Anesthetic: Lidocaine 1% Amount of anesthesia used (mL): 10 Pre-repair: wound explored, irrigated extensively, deep structures intact and wound margins revised (An approximate 2 cm x 3 mm skin flap removed with scissors. Remaining edges loosely approximated) Skin layer closed with: nylon Size (cm): 5-0 Number of sutures: 2 Technique: simple, interrupted
[2019-05-31] MEDS: Ibuprofen 600 MG TAB PO (10:50)
--- NOTE | 2019-05-31 11:10 | DI.RAD_ITS ---
EXAM: XR FOREARM RT CLINICAL HISTORY: s/p dog bite to mid forearm, r/o fx/foreign body. TECHNIQUE: 2D digital imaging was performed. COMPARISON: No exams were available for comparison FINDINGS: BONES: No acute fracture is present. No bony destructive lesion is seen. Visualized portion of elbow and wrist joints are unremarkable. Mild degenerative changes are seen in the wrist and elbow. SOFT TISSUE: Normal. No radiopaque foreign bodies are present. IMPRESSION: 1. No acute fracture or dislocation. 2. No radiopaque foreign body identified in the soft tissue. DATA REPOSITORY: RADIATION DOSE DELIVERED:
--- NOTE | 2019-05-31 11:10 | NUR.NOTE ---
Nursing Note: Spoke with Marina Medina about the animal bite report. 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 The form was faxed to the memorandum statement clerk. Christelle Scherer [phone]
--- NOTE | 2019-05-31 11:36 | DI.VRAD_ITS ---
PROCEDURE INFORMATION: Exam: XR Right Forearm Exam date and time: 05/31/2019 11:06 AM Age: 78 years old Clinical indication: Other: S/P dog bite to mid forearm, R/O fx/foreign body TECHNIQUE: Imaging protocol: XR Right forearm. Views: 2 views. COMPARISON: No relevant prior studies available. FINDINGS: Bones/joints: Degenerative changes in the radiocarpal joint Degenerative changes in the elbow Small well corticated avulsion fracture adjacent to the medial condyle There is no evidence of acute fracture.There is no evidence of malalignment or dislocation. Soft tissues: No foreign body identified. IMPRESSION: 1. No foreign body identified. 2. There is no evidence of acute fracture.There is no evidence of malalignment or dislocation. Dictated and Authenticated by: Mitchell Logan MD. Ordering:MUKUL Funez MD
[2019-05-31] MEDS: Amoxicillin 875/Clav. 125 TAB PO ×2 (12:07→12:56)
[2019-05-31 12:56] VITALS: BP 135/61; PULSE 68; RESP 15; TEMP 36.5; O2SAT 99
== END 2019-05-31 12:56 | disposition home or self-care (01) ==
PROVIDERS: Emergency Provider Physician Assistant
DX: S51.851A Open bite of right forearm, initial encounter (principal); W54.0XXA Bitten by dog, initial encounter
CPT/HCPCS: 12002; 73090

== ENCOUNTER 2019-06-07 07:31 | Emergency (ER) | payer MEDICARE, SELFPAY ==
--- NOTE | 2019-06-07 07:33 | W.ED.GENAD ---
Discharge Plan Disposition Patient Disposition: HOME Condition: Good Discharge Details Chief Complaint: SutureRem Clinical Impression: Encounter for removal of sutures Primary Care Provider: Sameera Elam ED Provider: Beck Brunson Home Meds and New Rx's Prescriptions: No Action acetaminophen 500 mg tablet 500 mg PO TID RF: 0 gabapentin 100 mg capsule See Rx Instructions PO DAILY RF: 0 hydrochlorothiazide 12.5 mg capsule 12.5 mg PO DAILY Qty: 90 RF: 4 levothyroxine 75 mcg capsule 75 mcg PO DAILY Qty: 90 RF: 4 triamcinolone acetonide 0.1 % cream 1 applic TP BID PRN (Reason: vulvanitis) Qty: 80 RF: 1 amoxicillin-pot clavulanate [Augmentin] 875-125 mg tablet 1 tab PO BID 9 Days Qty: 18 RF: 0 Discharge Instructions Instructions: Stitches Removal (ED) Additional Instructions: Your 2 sutures have been removed. I would recommend continuing the antibiotic until completion. If you notice that the lesion on your lower lip does get worse and you can stop the antibiotic. If you notice any new lesions or any rash anywhere else please return immediately for reassessment. The Steri-Strips will come off on their own with time. If you notice any drainage, spreading of the redness, worsening pain or swelling please return immediately. Please follow-up closely with your primary care provider to have your arm reassess. If you notice any worsening of your symptoms, or any new symptoms such as vomiting, diarrhea, fever, chills, shortness of breath, chest pain, numbness, weakness, or fainting , please return immediately to the emergency department for reevaluation. Please follow up with your primary care provider as soon as possible for reassessment and reevaluation. As always, it was a pleasure participating in your medical care today. Referrals: Sameera Elam, [employer]NF[employer]CEMENT OFFICER [Primary Care Provider] - Medical Decision Making This is an 78-year-old female who on 05/31/2019 had a dog bite to her right arm. It was loosely sutured, clean, x-rays are negative, and the patient was discharged on Augmentin. Patient presents today for wound check. She has been doing well, taking the antibiotic Augmentin as directed. She has noticed a very small lesion on her lower lip, which she has been covering with Vaseline. She is unsure if this is secondary to the antibiotic or just coincidental. She denies fever chills, spreading redness or drainage. Exam demonstrates a well-healing dog bite laceration on the right forearm, no signs of significant cellulitis. No abscess or fluctuance. 2 sutures were removed, tolerated well. 3 Steri-Strips were placed over this for additional strength. The lesion on the patient's lip does not appear to be an allergy related lesion as she shows no signs of any other lesions or abnormality on exam. No other evidence of reaction to the antibiotic. No evidence of Rajendra Ras syndrome. This time I feel the patient can be discharged. Recommend continuation of the antibiotic for the next 2 days which is the remainder of her prescription. Discussed red flags which to return. I have extensively reviewed the treatment plan and discharge instructions with the patient. I have addressed all patient concerns at this time. The patient was made aware of what symptoms to monitor for that would warrant a return to the emergency department. Discussed the plan with the patient, they demonstrate verbal understanding and agreement with our assessment and plan at this time. HPI General Date/Time Provider Initiated Documentation: 06/07/19 07:32. HPI Narrative: This is an 78-year-old female who on 05/31/2019 had a dog bite to her right arm. It was loosely sutured, clean, x-rays are negative, and the patient was discharged on Augmentin. Patient presents today for wound check. She has been doing well, taking the antibiotic Augmentin as directed. She has noticed a very small lesion on her lower lip, which she has been covering with Vaseline. She is unsure if this is secondary to the antibiotic or just coincidental. She denies fever chills, spreading redness or drainage. She denies any other complaints at this time. No other modifying factors. Related Data Home Medications Medication Instructions Recorded Confirmed acetaminophen 500 mg tablet 500 mg PO TID tab 11/28/17 05/31/19 gabapentin 100 mg capsule See Rx Instructions PO DAILY cap 11/28/17 05/31/19 hydrochlorothiazide 12.5 mg capsule 12.5 mg PO DAILY #90 cap 09/03/18 05/31/19 levothyroxine 75 mcg capsule 75 mcg PO DAILY #90 cap 09/03/18 05/31/19 triamcinolone acetonide 0.1 % 1 applic TP BID PRN #80 gm 09/03/18 05/31/19 topical cream amoxicillin-pot clavulanate 1 tab PO BID 9 Days #18 tab 05/31/19 [Augmentin] Previous Rx's Medication Instructions Recorded hydrochlorothiazide 12.5 mg capsule 12.5 mg PO DAILY #90 cap 09/03/18 levothyroxine 75 mcg capsule 75 mcg PO DAILY #90 cap 09/03/18 triamcinolone acetonide 0.1 % 1 applic TP BID PRN #80 gm 09/03/18 topical cream amoxicillin-pot clavulanate 1 tab PO BID 9 Days #18 tab 05/31/19 [Augmentin] Allergies Allergy/AdvReac Type Severity Reaction Status Date / Time No Known Drug Allergies Allergy Unknown Verified 05/31/19 10:30 General GAGE: 4 Review of Systems All systems reviewed & are unremarkable except as noted in HPI and below PFSH Social History Smoking/Tobacco Use Status: Former Tobacco Use Alcohol Intake: never Drug use: Never Substance use type: does not use Counseling given: No Caregiver/Support person: No Household members: spouse Housing: house Do you need help understanding health information?: Rarely Pets and animals: Yes Pets and animals: cat(s) and dog(s) Sexually active: No Current gender identity: female What is your relationship status?: How often do you talk on the phone with friends or family?: three or more times per week How often do you get together with friends or relatives?: twice per week How often do you attend moravian or mormon services?: decline to answer Do you belong to any clubs or organized social groups?: no Panel score (0-1 are the most socially isolated patients): 2 What type of physical activity do you participate in: walking Duration: 15-30 minutes/day Frequency: daily Janessa/Confucianism: [employer] Special janessa needs: No Seatbelt use: always Helmet use: No Drive intox or ride w/intox 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 3.ENT: Atraumatic external nose and ears. Moist MM. Neck: Symmetric, trachea midline, No thyromegaly. Very small slight canker sore/ulcerated-like lesion on the patient's lower lip in the center. No other lesions in the mouth, no other lesions on the tongue. 4.CVS: +S1/S2, No murmurs or gallops. Peripheral pulses 2+ and equal in all extremities. Brisk capillary refill in all extremities. 5.RESP: Unlabored respiratory effort. Clear to auscultation bilaterally. No wheezes rales or rhonchi 6.GI: Soft, Nontender/Nondistended, No hepatosplenomegaly. No guarding or rebound. 7.MSK: Normocephalic/Atraumatic, Extremities w/o deformity or ttp No cyanosis or clubbing, Normal movement of all extremities 8.Skin: Warm, Dry. Right arm demonstrates a well healing lesion on the right forearm, good eschar between the skin, good wound edge reapproximation. No bleeding or discharge. Minimal less than 6 mm of surrounding erythema. No fluctuance, or evidence of drainage or abscess. No signs of cellulitis.. Negative Nikolsky sign. No large vesicles or bulla. No palpable purpura. No evidence of severe cellulitis. No evidence of vaccine preventable rash. 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 Sensation grossly intact, no focal neurologic deficits. 10.Psych: (AAO) x3. Appropriate mood and affect
[2019-06-07 07:40] VITALS: BP 133/60; PULSE 82; TEMP 36.1; O2SAT 99
== END 2019-06-07 07:55 | disposition home or self-care (01) ==
PROVIDERS: Emergency Provider Student in an Organized Health Care Education/Training Program
DX: S51.851D Open bite of right forearm, subsequent encounter (principal); W54.0XXD Bitten by dog, subsequent encounter; Z48.02 Encounter for removal of sutures; K13.0 Diseases of lips
CPT/HCPCS: 99281

== ENCOUNTER 2019-08-10 14:14 | Emergency (ER) | payer MEDICARE, SELFPAY ==
[2019-08-10 14:19] VITALS: BP 148/70; PULSE 98; RESP 16; TEMP 37.5; O2SAT 99
--- NOTE | 2019-08-10 14:30 | DI.RAD_ITS ---
EXAM: XR WRIST RT COMPLETE CLINICAL HISTORY: trauma from dog bite, pain. TECHNIQUE: 2D digital imaging was performed. COMPARISON: No exams were available for comparison FINDINGS: BONES: No acute fracture is present. No bony destructive lesion is seen. JOINTS: The carpal bones are normally aligned. SOFT TISSUE: There is soft tissue swelling of the distal forearm. No radiopaque foreign bodies are i dentified. IMPRESSION: No acute fracture or dislocation. No radiopaque foreign body. DATA REPOSITORY: RADIATION DOSE DELIVERED:
--- NOTE | 2019-08-10 15:15 | ED.GENADUL_ITS ---
Discharge Plan Disposition Patient Disposition: HOME Condition: Stable Discharge Details Chief Complaint: AnimalBite Clinical Impression: Dog bite Primary Care Provider: Sameera Elam ED Provider: Freida Gomez Home Meds and New Rx's Prescriptions: New amoxicillin-pot clavulanate [Augmentin] 875-125 mg tablet 1 tab PO BID Qty: 9 RF: 0 Continued acetaminophen 500 mg tablet 500 mg PO TID RF: 0 gabapentin 100 mg capsule See Rx Instructions PO DAILY RF: 0 hydrochlorothiazide 12.5 mg capsule 12.5 mg PO DAILY Qty: 90 RF: 4 levothyroxine 75 mcg capsule 75 mcg PO DAILY Qty: 90 RF: 4 triamcinolone acetonide 0.1 % cream 1 applic TP BID PRN (Reason: vulvanitis) Qty: 80 RF: 1 acyclovir 400 mg tablet 400 mg PO TID PRN (Reason: cold sores) Qty: 60 RF: 1 ibuprofen 800 mg Tablet 800 mg PO PRN PRNRF: 0 Discharge Instructions Instructions: Amoxicillin/Clavulanate Potassium (By mouth), Animal Bite (ED), Laceration (ED) Additional Instructions: Please return immediately to the emergency department if you develop any new or worsening symptoms, if your condition does not improve as expected, or if you become otherwise concerned. It is extremely important that you call soon as possible to make an appointment to be seen in follow-up for this visit by your primary care doctor. Referrals: Sameera Elam, [employer] [Primary Care Provider] - Discharge Data Discharge Date/Time-TO BE ENTERED AT DEPARTURE: 08/10/19 15:38 Medical Decision Making Yoselin Arias is an 78 y/o woman who presented to the emergency department for dog bite from neighbor's dog who is known to her (Pt states she is sure dog is UTD on vaccines contrary to triage note). On exam Pt with several superficial lacerations to the right dorsal wrist, none requiring sutures. Diffuse TTP of the right wrist. Concern for possible fx, plan for xray. Exam/hx not c/w compartment syndrome, nerve injury, vascular injury, active infection, other acute emergent life threatening process. Tetanus UTD. xray okay. Wounds irrigated copiously under pressure, wound dressing applied. Incident reported to animal control. Plan for augmentin. I had a lengthy discussion with Patient regarding return to emergency department precautions, home care, and importance of outpatient follow-up. Pt verbalizes understanding of the plan and is amenable. Patient discharged to home with clear plan for outpatient follow-up. All questions were answered. Disposition decision was made weighing the risks and benefits of hospitalization versus outpatient treatment, the risk for further decompensation, and the patient's wishes. Medical Records Medical records reviewed: Yes I reviewed the patient's medical records. Imaging Data Radiologic Study: Attestation: I personally reviewed and interpreted this imaging study as follows: Radiologist's impression: EXAM: XR WRIST RT COMPLETE CLINICAL HISTORY: trauma from dog bite, pain. TECHNIQUE: 2D digital imaging was performed. COMPARISON: No exams were available for comparison FINDINGS: BONES: No acute fracture is present. No bony destructive lesion is seen. JOINTS: The carpal bones are normally aligned. SOFT TISSUE: There is soft tissue swelling of the distal forearm. No radiopaque foreign bodies are identified. IMPRESSION: No acute fracture or dislocation. No radiopaque foreign body. HPI General Mode of arrival: ambulatory . Date/Time Provider Initiated Documentation: 08/10/19 14:17 . Limitations to Documentation: no limitations . Information obtained by: patient, RN notes reviewed and old records reviewed . HPI Narrative: Yoselin Arias is an 78 y/o woman with h/o hypothyroidism, GERD, HTN presenting to the emergency department with dog bite. Pt reports that she was walking in the middle [place] her [place] when a neighbor's dog ran out from a [address] and bit her right wrist. Occurred JPTA. Pt reports that the same dog bit her in the same manner 2 months ago. Pt states that dog's vaccines are UTD. Pt states that she has pain at the site of the bites and no other pain, did not fall, denies any other injuries. Pt states that she was previously well and denies any other symptoms: no fever, vomiting, SOB, cough, numbness, weakness, other pain, rash. Related Data Home Medications Medication Instructions Recorded Confirmed acetaminophen 500 mg tablet 500 mg PO TID tab 11/28/17 08/10/19 gabapentin 100 mg capsule See Rx Instructions PO DAILY cap 11/28/17 08/10/19 hydrochlorothiazide 12.5 mg capsule 12.5 mg PO DAILY #90 cap 09/03/18 08/10/19 levothyroxine 75 mcg capsule 75 mcg PO DAILY #90 cap 09/03/18 08/10/19 triamcinolone acetonide 0.1 % 1 applic TP BID PRN #80 gm 09/03/18 08/10/19 topical cream acyclovir 400 mg tablet 400 mg PO TID PRN #60 tab 06/09/19 08/10/19 amoxicillin-pot clavulanate 1 tab PO BID #9 tab 08/10/19 [Augmentin] ibuprofen 800 mg PO PRN PRN 08/10/19 08/10/19 Previous Rx's Medication Instructions Recorded hydrochlorothiazide 12.5 mg capsule 12.5 mg PO DAILY #90 cap 09/03/18 levothyroxine 75 mcg capsule 75 mcg PO DAILY #90 cap 09/03/18 triamcinolone acetonide 0.1 % 1 applic TP BID PRN #80 gm 09/03/18 topical cream acyclovir 400 mg tablet 400 mg PO TID PRN #60 tab 06/09/19 amoxicillin-pot clavulanate 1 tab PO BID #9 tab 08/10/19 [Augmentin] Allergies Allergy/AdvReac Type Severity Reaction Status Date / Time No Known Drug Allergies Allergy Unknown Verified 06/09/19 11:24 General Stated Complaint: AnimalBite GAGE: 4 Review of Systems Narrative: Constitutional: denies fevers Eyes: denies eye pain ENT: denies ear pain, dental pain, sore throat Cardiovascular: denies chest pain Respiratory: denies SOB, cough GI: denies abdominal pain, vomiting : denies flank pain MSK: denies back pain, neck pain, arthralgias Skin: denies rash, reports wound to right wrist Neuro: denies headaches, numbness, weakness [facility] Medical History (Updated 08/10/19 @ 15:22 by Freida Gomez MD) Anatomical narrow angle of right eye (Resolved) Anatomical narrow angle, left eye (Resolved 12/09/17) Canker sores oral (Acute) Left hand pain (Inactive 08/29/17) Nuclear sclerotic cataract of left eye (Resolved 12/09/17) Nuclear sclerotic cataract of right eye (Resolved) Surgical History section History of bilateral ligation of fallopian tubes (Inactive) History of section (Inactive) Ligation of fallopian tube S/P cataract surgery (Resolved 12/09/17) Social History Smoking/Tobacco Use Status: Former Tobacco Use Alcohol Intake: never Drug use: Never Substance use type: does not use Counseling given: No Caregiver/Support person: No Household members: spouse Housing: house Do you need help understanding health information?: Rarely Pets and animals: Yes Pets and animals: cat(s) and dog(s) Sexually active: No Current gender identity: female What is your relationship status?: How often do you talk on the phone with friends or family?: three or more times per week How often do you get together with friends or relatives?: twice per week How often do you attend catholic or sikhism services?: decline to answer Do you belong to any clubs or organized social groups?: no Panel score (0-1 are the most socially isolated patients): 2 What type of physical activity do you participate in: walking Duration: 15-30 minutes/day Frequency: daily Janessa/Buddhism: Denominational Special janessa needs: No Seatbelt use: always Helmet use: No Drive intox or ride w/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 Do you feel safe at home: Yes Do you feel safe in your relationship?: Yes Exam Narrative Exam Narrative: Constitutional: well and [id number], pleasant, conversing normally HENT: head atraumatic/normocephalic/normal inspection, mucous membranes moist Eyes: conjunctiva normal, sclera normal, pupils 3mm b/l Neck: no stridor, normal ROM, trachea midline Resp: normal work of breathing, no respiratory distress Cardio: normal rate, normal rhythm Skin: warm, dry, normal color, no rash Neuro: alert, not altered, grossly non-focal, normal tone Ext: no edema, right dorsal wrist with 4 superficial lacerations 1-2cm in length, not gaping. no apparent contamination or foreign bodies. hematoma right proximal dorsal hand. wrist mildly TTP diffusely, ROM of right wrist somewhat limited 2/2 pain. normal ROM all right digits, brisk cap refill, normal sensation. Radial pulses intact and symmetric Psych: normal mood, normal affect, normal behavior Course Vital Signs Vital signs: Vital Signs Temperature 37.5 C 08/10/19 14:19 Pulse 98 H 08/10/19 14:19 Respiratory Rate 16 08/10/19 14:19 Blood Pressure 148/70 H 08/10/19 14:19 Pulse Oximetry 99 08/10/19 14:19 Temperature 37.5 C 08/10/19 14:19 Temperature Source Skin 08/10/19 14:19 Pulse 98 H 08/10/19 14:19 Respiratory Rate 16 08/10/19 14:19 Respiratory Effort Non-Labored 08/10/19 14:28 Blood Pressure 148/70 H 08/10/19 14:19 Blood Pressure Position Sitting 08/10/19 14:19 Pulse Oximetry 99 08/10/19 14:19 Oxygen Delivery Method Room Air 08/10/19 14:19 Oxygen Flow Rate 0 08/10/19 14:19 Pain Level 5 08/10/19 14:19
[2019-08-10] MEDS: Amoxicillin 875/Clav. 125 TAB PO (15:16)
--- NOTE | 2019-08-12 11:01 | NUR.NOTE ---
Nursing Note: Animal bite report faxed yesterday by ED daily sales audit clerk to [facility] Office. Spoke with health officer Marina Medina and she is aware of the report. Christelle Scherer.
== END 2019-08-10 15:38 | disposition home or self-care (01) ==
PROVIDERS: Emergency Provider Student in an Organized Health Care Education/Training Program
DX: S61.551A Open bite of right wrist, initial encounter (principal); W54.0XXA Bitten by dog, initial encounter
CPT/HCPCS: 99283; 73110

== ENCOUNTER 2019-09-16 02:31 | Outpatient (CLI) | payer MEDICARE, SELFPAY ==
[2019-09-16 10:03] LABS: ALT 18 U/L (14-59); AST 17 U/L (15-37); Albumin 3.8 g/dL (3.4-5.0); Alkaline Phosphatase 66 U/L (46-116); Anion Gap 8.8 mmol/L (3-11); BUN 19 mg/dL (7-18); Bilirubin, Total 0.6 mg/dL (0.2-1.0); CO2 28.2 mmol/L (21.0-32.0); Calcium 8.9 mg/dL (8.5-10.1); Chloride 105 mmol/L (98-107); Glucose 105 mg/dL (74-106); Potassium 3.6 mmol/L (3.5-5.1); Sodium 142 mmol/L (136-145); TSH (W/Ref FT4) 1.47 uIU/mL (0.36-3.74); Total Protein 6.9 g/dL (6.4-8.2)
== END 2019-09-16 02:51 ==
DX: E03.9 Hypothyroidism, unspecified (principal); R73.01 Impaired fasting glucose; M47.16 Other spondylosis with myelopathy, lumbar region
CPT/HCPCS: 36415; 80053; 84443

== ENCOUNTER 2019-10-26 20:30 | Outpatient (REF) | payer MEDICARE, SELFPAY ==
[2019-10-26 21:02] LABS: Bilirubin Small (Negative); Blood Trace-intact (Negative); Clarity Clear (Clear); Glucose Negative (Negative); Ketones 15 mg/dL (Negative); Leukocyte Esterase Negative (Negative); Nitrite Negative (Negative); Specific Gravity >= 1.030 (1.005-1.025); Urobilinogen 0.2 EU/dL (Up TO 0.2); pH 5.5 (5-8)
[2019-10-26 21:33] LABS: Bacteria Negative HPF (Negative); C & S Indicated? Yes; Casts Negative LPF (Negative); Crystals Mod Calcium Oxalate HPF (Negative); Epithelial Cells Negative HPF (Negative); Mucus Negative (Negative); Other Cells Few Renal (Negative)
== END 2019-10-26 20:50 ==
LOC: LBN 20:30
DX: K58.9 Irritable bowel syndrome, unspecified (principal); R19.8 Other specified symptoms and signs involving the digestive system and abdomen; R30.0 Dysuria
CPT/HCPCS: 81003; 81015; 87086

== ENCOUNTER 2019-10-28 03:20 | Outpatient (CLI) | payer MEDICARE, SELFPAY ==
--- NOTE | 2019-10-28 07:30 | DI.US_ITS ---
EXAM: US ABDOMEN PELVIS CLINICAL HISTORY: vague abdominal/pelvic cramping discomfort TECHNIQUE: Ultrasound performed using standard protocol. COMPARISON: US ABDOMEN RENAL ULTRASOUND from 04/05/2015 FINDINGS: Abdominal ultrasound was performed according to the usual protocol. Liver is normal in appearance. There is no evidence of cholelithiasis or biliary dilatation. Pancreas is unremarkable as visualized . Spleen appears normal. Kidneys appear normal with no evidence of a renal mass, hydronephrosis, or nephrolithiasis. Abdominal aorta and IVC are of normal diameter. Pelvic ultrasound was performed transabdominally only and shows some myometrial calcifications which is a nonspecific finding which may be associated with uterine fibroid. No gross mass identified. En dometrial stripe is about 5 millimeters in thickness and appears homogeneous. Right ovary is nonvisu alized. Left ovary is small and unremarkable in appearance at 16 x 7 x 9 millimeters. IMPRESSION: Negative abdominal and pelvic ultrasound. DATA REPOSITORY:
== END 2019-10-28 03:40 ==
DX: R10.9 Unspecified abdominal pain (principal); R10.2 Pelvic and perineal pain
CPT/HCPCS: 76700; 76856

== ENCOUNTER 2019-10-29 09:26 | Outpatient (REF) | payer MEDICARE, SELFPAY ==
[2019-10-30 11:02] LABS: Campylobacter PCR Negative (Negative); Salmonella PCR Negative (Negative); Shiga Toxin PCR Negative (Negative); Shigella/Enteroinvasive Ecoli Negative (Negative)
== END 2019-10-29 09:46 ==
LOC: LBN 09:26
DX: K58.9 Irritable bowel syndrome, unspecified (principal); R19.8 Other specified symptoms and signs involving the digestive system and abdomen
CPT/HCPCS: 87329; 87505

== ENCOUNTER → 2020-02-16 13:32 | Outpatient (BNVA) | payer MEDICARE, SELFPAY | PROVIDERS: Visit Provider Nurse Practitioner Adult Health | DX: G56.01 Carpal tunnel syndrome, right upper limb (principal); I10 Essential (primary) hypertension | CPT/HCPCS: 95908; 99203; 99214 ==

== ENCOUNTER 2020-05-13 16:31 | Inpatient (IN) | payer MEDICARE, SELFPAY ==
[2020-05-13] VITALS (63 sets, daily range): BP systolic 100–178; BP diastolic 54–95; PULSE 78–116; RESP 15–44; TEMP 36.5–36.6; O2SAT 95–99
--- NOTE | 2020-05-13 16:30 | RT.EKG_ITS ---
APPROVED REPORT Exam: Resting ECG Patient Location: E HR:116 bpm ECG Measurements Heart Rate 116 AXIS ND 162 P 59 QRSd 99 QRS 23 QT 327 T 26 QTc 455 Conclusion Sinus tachycardia Subtle lateral st depression
--- NOTE | 2020-05-13 17:00 | DI.RAD_ITS ---
EXAM: XR PORTABLE CHEST AP CLINICAL HISTORY: Chest pain, left. TECHNIQUE: 2D digital imaging was performed. COMPARISON: CR RIGHT SHOULDER COMPLETE from 07/23/2016 FINDINGS: Heart size is normal. The mediastinum is not widened. Chest leads in place. Lungs are clear. No infiltrates nor obvious pleural effusions. There is subsegmental platelike atelectasis in the left lung base. IMPRESSION: Subsegmental platelike atelectasis in left lung base. No confluent infiltrates. No pleural effusion s evident on this single portable AP view. DATA REPOSITORY: RADIATION DOSE DELIVERED:
--- NOTE | 2020-05-13 17:10 | ED.GENADUL_ITS ---
Discharge Plan Discharge Details Chief Complaint: Chest Pain Primary Care Provider: Sameera Elam ED Provider: Vaughn Allison Home Meds and New Rx's Prescriptions: No Action acetaminophen 500 mg tablet 500 mg PO TID RF: 0 hydrochlorothiazide 12.5 mg capsule 12.5 mg PO DAILY Qty: 90 RF: 4 ibuprofen 800 mg tablet 400 mg PO BID PRN (Reason: arthritis) Qty: 90 RF: 3 triamcinolone acetonide 0.1 % cream 1 applic TP BID PRN (Reason: vulvanitis) Qty: 80 RF: 1 gabapentin 100 mg capsule 100 mg PO BID Qty: 180 RF: 3 acyclovir 400 mg tablet 400 mg PO TID PRN (Reason: cold sores) Qty: 60 RF: 1 levothyroxine 75 mcg tablet 75 mcg PO DAILY Qty: 90 RF: 3 omeprazole 20 mg capsule,delayed release(DR/EC) 20 mg PO DAILY Qty: 30 RF: 2 Medical Decision Making This is an 79-year-old female who presents from home with the onset last evening of posterior to anterior chest pressure that she describes as 3-4 out of 10. Radiated to her arms at times and she had transient shortness of breath and nausea at home. She has a history of hypertension. No known history of coronary artery disease. Differential diagnosis is broad including atypical chest pain, back strain, acute coronary syndrome. Patient given 325 mg of aspirin and single sublingual nitroglycerin with some relief of her discomfort. IV access established, patient placed on a medical dosimetrist, screening EKG, laboratories, chest x-ray obtained. Patient given aspirin and 1 sublingual nitroglycerin. EKG reveals what appear to be new lateral ST segment subtle depressions. Chest x-ray: No acute process. Labs: Initial troponin is negative. Unremarkable CBC, chemistries note potassium of 2.8 which was supplemented. Given patient's age, no ST segment changes, will discuss admission for further stratification. HPI General Mode of arrival: ambulatory . Date/Time Provider Initiated Documentation: 05/13/20 16:32 . Limitations to Documentation: no limitations . Information obtained by: patient . History of Present Illness 79 year old F presents to the emergency department with the chief complaint of Left chest pressure, hours, described as moderate, Quality is described as dull, and is localized to the chest and left. Patient reports radiation to (To arm). Patient started experiencing this hour(s) and it has been intermittent. No relieving factors improve symptom(s), No exacerbating factors reported . Patient notes other (Transient short of breath and transient nausea); denies syncope. Patient did receive the following treatments prior to arrival, none Related Data Home Medications Medication Instructions Recorded Confirmed acetaminophen 500 mg tablet 500 mg PO TID tab 11/28/17 05/13/20 acyclovir 400 mg tablet 400 mg PO TID PRN #60 tab 06/09/19 05/13/20 hydrochlorothiazide 12.5 mg capsule 12.5 mg PO DAILY #90 cap 09/10/19 05/13/20 ibuprofen 800 mg tablet 400 mg PO BID PRN #90 tab 09/10/19 05/13/20 triamcinolone acetonide 0.1 % 1 applic TP BID PRN #80 gm 09/10/19 05/13/20 topical cream gabapentin 100 mg capsule 100 mg PO BID #180 cap 01/07/20 05/13/20 levothyroxine 75 mcg tablet 75 mcg PO DAILY #90 tab 02/16/20 05/13/20 omeprazole 20 mg capsule,delayed 20 mg PO DAILY #30 cap 03/09/20 05/13/20 release Previous Rx's Medication Instructions Recorded acyclovir 400 mg tablet 400 mg PO TID PRN #60 tab 06/09/19 hydrochlorothiazide 12.5 mg capsule 12.5 mg PO DAILY #90 cap 09/10/19 ibuprofen 800 mg tablet 400 mg PO BID PRN #90 tab 09/10/19 triamcinolone acetonide 0.1 % 1 applic TP BID PRN #80 gm 09/10/19 topical cream gabapentin 100 mg capsule 100 mg PO BID #180 cap 01/07/20 levothyroxine 75 mcg tablet 75 mcg PO DAILY #90 tab 02/16/20 omeprazole 20 mg capsule,delayed 20 mg PO DAILY #30 cap 03/09/20 release Allergies Allergy/AdvReac Type Severity Reaction Status Date / Time No Known Drug Allergies Allergy Unknown Verified 05/13/20 16:38 General Stated Complaint: Chest Pain GAGE: 2 Review of Systems Narrative: No recent illness. Denies fall or injury. No leg pain or swelling. No previous history of coronary artery disease. 8 systems reviewed and otherwise negative [facility] Medical History Abdominal/pelvic symptom Anatomical narrow angle of right eye Anatomical narrow angle, left eye (12/09/17) Canker sores oral Essential hypertension (07/23/13) Gastroesophageal reflux disease (08/29/17) Hypothyroidism (02/22/92) IBS (irritable bowel syndrome) Impaired fasting glucose (02/22/04) Left hand pain (08/29/17) Nuclear sclerotic cataract of left eye (12/09/17) Nuclear sclerotic cataract of right eye Right carpal tunnel syndrome Surgical History section History of bilateral ligation of fallopian tubes History of section Ligation of fallopian tube S/P cataract surgery (12/09/17) Family History Mother , 92 Heart disease Father , 90 Heart disease Sister , 66 Heart disease Sister No problems noted. Son No problems noted. Son No problems noted. Son No problems noted. Daughter No problems noted. Sister , age 80 No problems noted. Social History Smoking/Tobacco Use Status: Former Tobacco Use Smoking risk assessment performed?: Yes Alcohol Intake: never Drug use: Never Substance use type: does not use Counseling given: No Counseling provided: none Caregiver/Support person: No Household members: none Housing: house Number of Children: 4 number of grandchildren: 9 Communication Needs: None Do you need help understanding health information?: Rarely Pets and animals: Yes Pets and animals: cat(s) and dog(s) Sexually active: No Current gender identity: female What is your relationship status?: How often do you talk on the phone with friends or family?: three or more times per week How often do you get together with friends or relatives?: three or more times per week How often do you attend taoist or scientologist services?: decline to answer Do you belong to any clubs or organized social groups?: no Panel score (0-1 are the most socially isolated patients): 1 What type of physical activity do you participate in: walking Duration: 30-45 minutes/day Frequency: 5-6 times per week 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 Pleasant, well groomed, interactive. HEAD: Normocephalic, atraumatic ENT: Mucous membranes moist, External ear exam unremarkable EYES: PERRL, EOMI NECK: Full ROM, no LACI, no menigismus CHEST/RESP: Nontender, clear to auscultation bilateral, no wheeze/rhonchi/rales CARDIOVASCULAR: RRR, no murmur, rub suzette. 2+ Rad pulse bilateral ABDOMEN: Soft, nontender, no mass. +Bowel sounds EXT: Full ROM, no edema, no rash Neuro: Grossly normal neurologic exam, conversant, interactive. Psych: Speech fluent, thoughts congruent, affect normal Course Vital Signs Vital signs: Vital Signs Temperature 36.6 C 05/13/20 16:34 Pulse 116 H 05/13/20 16:34 Respiratory Rate 31 H 05/13/20 16:34 Blood Pressure 178/71 H 05/13/20 16:34 Pulse Oximetry 99 05/13/20 16:34 Temperature 36.6 C 05/13/20 16:34 Temperature Source Skin 05/13/20 16:34 Pulse 116 H 05/13/20 16:35 Pulse 115 H 05/13/20 16:36 Respiratory Rate 18 05/13/20 16:48 Respiratory Effort Non-Labored 05/13/20 16:48 Respiratory Depth Normal 05/13/20 16:48 Respiratory Pattern Normal 05/13/20 16:48 Blood Pressure 178/71 H 05/13/20 16:35 Blood Pressure Mean 98 05/13/20 16:35 Blood Pressure Position Sitting 05/13/20 16:34 Pulse Oximetry 99 05/13/20 16:36 Oxygen Delivery Method Room Air 05/13/20 16:34 Oxygen Flow Rate 0 05/13/20 16:34 Pain Level 4 05/13/20 16:34
[2020-05-13 17:15] LABS: Absolute Basophil Count 0.06 10^3/uL (0.0-0.2); Absolute Eosinophil Count 0.13 10^3/uL (0.0-0.7); Absolute Lymphocyte Count 2.06 10^3/uL (1.2-3.4); Absolute Monocyte Count 0.67 10^3/uL (0.1-0.8); Absolute Neutrophil Count 3.04 10^3/uL (1.2-6.7); Eosinophils % 2.2; HCT 41.8 % (36.0-46.0); HGB 14.2 g/dL (11.2-15.7); Lymphocytes % 34.6; MCH 31.8 pg (27.0-33.0); MCV 93.7 fL (80-95); Monocytes % 11.2; Nucleated RBC 0 %; Platelet Count 198 10^3/uL (130-400); RBC 4.46 10^6/uL (3.93-5.22); RDW 12.4 % (11.7-14.6); RDW-SD 42.9 fL; WBC 5.96 10^3/uL (4.4-10.8)
[2020-05-13] MEDS: Aspirin 325 MG TAB PO (17:22)
[2020-05-13 17:35] LABS: ALT 18 U/L (14-59); AST 19 U/L (15-37); Albumin 3.8 g/dL (3.4-5.0); Alkaline Phosphatase 81 U/L (46-116); Anion Gap 11.3 mmol/L (3-11); BUN 17 mg/dL (7-18); Bilirubin, Total 0.6 mg/dL (0.2-1.0); CO2 25.7 mmol/L (21.0-32.0); CREATININE 0.7 mg/dL (0.55-1.02); Calcium 9.3 mg/dL (8.5-10.1); Chloride 103 mmol/L (98-107); Glucose 134 mg/dL (74-106); Magnesium 2.2 mg/dL (1.8-2.4); Sodium 140 mmol/L (136-145); Total Protein 7.6 g/dL (6.4-8.2)
--- NOTE | 2020-05-13 17:35 | DI.VRAD_ITS ---
PROCEDURE INFORMATION: Exam: XR Chest, 1 View Exam date and time: 05/13/2020 5:10 PM Age: 79 years old Clinical indication: Left-sided chest pain; Patient HX: Chest pain, left TECHNIQUE: Imaging protocol: XR of the chest Views: 1 view. COMPARISON: CT CHEST WITH CONTRAST 04/05/2015 2:48 PM FINDINGS: Lungs: Clear lungs. Pleural spaces: Unremarkable. No pleural effusion. No pneumothorax. Heart/Mediastinum: Cardiomediastinal silhouette is within normal limits. Bones/joints: No acute displaced fracture or dislocation. IMPRESSION: No acute cardiopulmonary process. Dictated and Authenticated by: Leo Woo MD. Ordering:LAURYN Mendes MD
[2020-05-13 17:41] LABS: Potassium 2.8 mmol/L (3.5-5.1); Troponin I < 0.05 ng/mL (<0.06)
[2020-05-13] MEDS: POTASSIUM CHLORIDE 10 MEQ/100 ML BAG 100 MEQ IVPB (17:53)
[2020-05-13] MEDS: Potassium Chloride Liquid 20 MEQ PKT 10 MEQ PO (17:53)
--- NOTE | 2020-05-13 18:00 | RT.EKG_ITS ---
APPROVED REPORT Exam: Resting ECG Patient Location: E HR:99 bpm ECG Measurements Heart Rate 99 AXIS IN 197 P 44 QRSd 95 QRS 24 QT 354 T -5 QTc 455 Conclusion Sinus rhythm. Subtle persistent lateral st segment changes
[2020-05-13] MEDS: Normal Saline 1,000 ML 150 ML IV (18:06)
--- NOTE | 2020-05-13 18:36 | HPE_ITS ---
Date of service: 05/13/20 Time of Service: 18:36 Assessment and Plan Assessment and plan (1) Chest pain: Status: Acute Assessment and plan: CP. Story potentially c/w ACS and fluctuating EKG would tend to be confirmative. However negative troponin after this duration of symptoms would not be expected. Will repeat NTG, give trial TUMS, and trend troponin. If responds to NTG or positive troponin will heparinize and place on NTG qtt. Will continue to replenish K and track. Reviewed ADs, requests Full Code. History of Present Illness History of Present Illness Chief Complaint: CP Narrative: 79 female with HTN, here with one day of essentially continuous left sided CP (heaviness) with radiation to left scapula. NO SOB or diaphoresis, was briefly dizzy earlier today. In ER w/u of note for negative troponin and EKG showing sagging of ST segments V3-6. NTG x1 w/o effect, but f/u EKG shows normalization of EKG although (again) with persistent symptoms. Admitted for further evaluation and management. States she is fairly active and has never had pain with activity. No provocative or palliative factors. Incidental finding K 2.8, has received 10 both PO and IV. Review of Systems All systems reviewed & are unremarkable except as noted in HPI and below PFSH Medical History Abdominal/pelvic symptom Anatomical narrow angle of right eye Anatomical narrow angle, left eye (12/09/17) Canker sores oral Essential hypertension (07/23/13) Gastroesophageal reflux disease (08/29/17) Hypothyroidism (02/22/92) IBS (irritable bowel syndrome) Impaired fasting glucose (02/22/04) Left hand pain (08/29/17) Nuclear sclerotic cataract of left eye (12/09/17) Nuclear sclerotic cataract of right eye Right carpal tunnel syndrome Surgical History section History of bilateral ligation of fallopian tubes History of section Ligation of fallopian tube S/P cataract surgery (12/09/17) Family History Mother , 92 Heart disease Father , 90 Heart disease Sister , 66 Heart disease Sister No problems noted. Son No problems noted. Son No problems noted. Son No problems noted. Daughter No problems noted. Sister , age 80 No problems noted. Social History Smoking/Tobacco Use Status: Former Tobacco Use Smoking risk assessment performed?: Yes Alcohol Intake: never Drug use: Never Substance use type: does not use Counseling given: No Counseling provided: none Caregiver/Support person: No Household members: none Housing: house Number of Children: 4 number of grandchildren: 9 Communication Needs: None Do you need help understanding health information?: Rarely Pets and animals: Yes Pets and animals: cat(s) and dog(s) Sexually active: No Current gender identity: female What is your relationship status?: How often do you talk on the phone with friends or family?: three or more times per week How often do you get together with friends or relatives?: three or more times per week How often do you attend restorationist or gnosticism services?: decline to answer Do you belong to any clubs or organized social groups?: no Panel score (0-1 are the most socially isolated patients): 1 What type of physical activity do you participate in: walking Duration: 30-45 minutes/day Frequency: 5-6 times per week Janessa/Uatsdin: Zoroastrian Special janessa needs: No Seatbelt use: always Helmet use: No Drive intox or ride w/intox bung driver: No Do you feel safe at home: Yes Do you feel safe in your relationship?: Yes Meds Home Medications and Allergies Home Medications Medication Instructions Recorded Confirmed Type acetaminophen 500 mg tablet 500 mg PO TID tab 11/28/17 05/13/20 History acyclovir 400 mg tablet 400 mg PO TID PRN #60 tab 06/09/19 05/13/20 Rx hydrochlorothiazide 12.5 mg capsule 12.5 mg PO DAILY #90 cap 09/10/19 05/13/20 Rx ibuprofen 800 mg tablet 400 mg PO BID PRN #90 tab 09/10/19 05/13/20 Rx triamcinolone acetonide 0.1 % 1 applic TP BID PRN #80 gm 09/10/19 05/13/20 Rx topical cream gabapentin 100 mg capsule 100 mg PO BID #180 cap 01/07/20 05/13/20 Rx levothyroxine 75 mcg tablet 75 mcg PO DAILY #90 tab 02/16/20 05/13/20 Rx omeprazole 20 mg capsule,delayed 20 mg PO DAILY #30 cap 03/09/20 05/13/20 Rx release Allergies Allergy/AdvReac Type Severity Reaction Status Date / Time No Known Drug Allergies Allergy Unknown Verified 05/13/20 16:38 Exam Narrative Exam Narrative: 145/70, 92, 36.6, 22, 97% RA. HEENT atraumatic; neck supple w/o JVD; lungs clear; heart RRR; abdomen soft and NT; extremities w/o edema, neuro Ox3, moves all 4s Results Labs Result diagrams: 05/13/20 17:08 05/13/20 17:08 Labs: Laboratory Results - last 24 hr 05/13/20 05/13/20 17:08 17:08 WBC 5.96 RBC 4.46 Hgb 14.2 Hct 41.8 MCV 93.7 MCH 31.8 MCHC 34.0 RDW 12.4 Plt Count 198 MPV 11.0 Immature Gran % 0.0 Neutrophils % 51.0 Lymphocytes % 34.6 Monocytes % 11.2 Eosinophils % 2.2 Basophils % 1.0 Nucleated RBC % 0 Absolute Neutrophils 3.04 Absolute Lymphocytes 2.06 Absolute Monocytes 0.67 Absolute Eosinophils 0.13 Absolute Basophils 0.06 Sodium 140 Potassium 2.8 L* Chloride 103 Carbon Dioxide 25.7 Anion Gap 11.3 H BUN 17 Creatinine 0.7 Estimated GFR/1.73 m2 >= 60.00 Glucose 134 H Calcium 9.3 Magnesium 2.2 Total Bilirubin 0.6 AST 19 ALT 18 Alkaline Phosphatase 81 Troponin I < 0.05 Total Protein 7.6 Albumin 3.8 Last Vital Signs Temp 36.6 C 05/13/20 16:34 Pulse 97 H 05/13/20 18:01 Resp 22 05/13/20 18:10 BP 145/70 H 05/13/20 18:01 Pulse Ox 97 05/13/20 18:10 COVID-19 Screening Have you, or household traveled for leisure in last 14 days?: No Had IN PERSON contact w/suspected or confirmed C-19 person: No
[2020-05-13 18:40] LABS: Source Nasopharynx
[2020-05-13] MEDS: Calcium Carbonate *TUMS* 500 MG CHEW 1000 MG PO (18:42)
[2020-05-13 19:20] LABS: COVID-19 PCR Negative (Negative); Influenza A PCR Negative (Negative); Influenza B PCR Negative (Negative); RSV PCR Negative (Negative)
[2020-05-13 20:08] LABS: Troponin I < 0.05 ng/mL (<0.06)
[2020-05-13] MEDS: Gabapentin 100 MG CAP PO (20:20)
[2020-05-13] MEDS: Acetaminophen 325 MG TAB 650 MG PO (20:21)
[2020-05-14] VITALS (12 sets, daily range): BP systolic 114–135; BP diastolic 60–107; PULSE 66–88; RESP 16–32; TEMP 36.6–36.9; O2SAT 94–97
[2020-05-14] MEDS: Levothyroxine 75 MCG TAB PO (05:13)
[2020-05-14 07:44] LABS: Troponin I < 0.05 ng/mL (<0.06)
[2020-05-14] MEDS: Omeprazole 20 MG CAPCR PO (07:59)
[2020-05-14] MEDS: hydroCHLOROthiazide 12.5 MG TAB PO (07:59)
[2020-05-14] MEDS: Gabapentin 100 MG CAP PO (07:59)
[2020-05-14] MEDS: Potassium Chloride 20 MEQ TABCR PO (08:56)
--- NOTE | 2020-05-14 09:02 | DSE_ITS ---
Date of service: 05/14/20 Time of Service: 09:03 DS: Diagnosis Discharge Diagnosis (1) Chest pain: Status: Acute Discharge Plan Disposition Patient Disposition: HOME Condition: Stable Discharge Details Reason For Visit: CP Admit Date/Time: 05/13/20 20:06 Admit Provider: Adal Shanks Attending Provider: Adal Shanks Primary Care Provider: Sameera Elam Hospital Course Hospital Course: This is an 79 female with HTN, presented with one day of continuous left sided CP (heaviness) with radiation to left scapula. NO SOB or diaphoresis. She did endorse being was briefly dizzy earlier on the day of presentation. In the ED the work-up included: negative troponin, EKG showing sagging of ST segments V3- 6. NTG x1 given without effect, but follow up EKG showed normalization, although (again) with persistent symptoms. She was admitted for further evaluation and management. Stated she is fairly active and has never had pain with activity. No provocative or palliative factors. Incidental finding of a potassium of 2.8. She had been prescribed potassium but stopped taking it d/t difficulty with the size of the pill. IV and po K+ re placement given with a repeat K on the day of discharge of 3.0. She was pain free during the time of hospitalization. No arrhythmias noted on monitoring. She will d/c with instructions of light activity only, return if CP is recurrent. Outpt nuclear med stress test ordered. Restart her previously prescribed K+ supplementation. Home Meds and New Rx's Prescriptions: New potassium chloride [K-Tab] 20 mEq tablet extended release 20 meq PO DAILY Qty: 1 RF: 0 Continued acetaminophen 500 mg tablet 500 mg PO TID RF: 0 hydrochlorothiazide 12.5 mg capsule 12.5 mg PO DAILY Qty: 90 RF: 4 triamcinolone acetonide 0.1 % cream 1 applic TP BID PRN (Reason: vulvanitis) Qty: 80 RF: 1 gabapentin 100 mg capsule 100 mg PO BID Qty: 180 RF: 3 acyclovir 400 mg tablet 400 mg PO TID PRN (Reason: cold sores) Qty: 60 RF: 1 levothyroxine 75 mcg tablet 75 mcg PO DAILY Qty: 90 RF: 3 omeprazole 20 mg capsule,delayed release(DR/EC) 20 mg PO DAILY Qty: 30 RF: 2 Discontinued ibuprofen 800 mg tablet 400 mg PO BID PRN (Reason: arthritis) Qty: 90 RF: 3 Discharge Instructions Instructions: Angina (DC) Activity:: light activity Equipment/Supplies:: No Equipment Needed Diet:: Low Sodium Discharge Orders Discharge Orders: Discharge Order (Routine); Ordered 05/14/20 Ordered By: Frank Porras Other Ambulatory Orders: NM MPI rest & stress grp (Routine) Location: None Selected Ordered By: Frank Porras DS: Summary Time Spent with Patient providing and/or coordinating discharge services: Greater than 30 minutes Status at Discharge Functional status at discharge: independent ambulation Overall status at discharge: patient is back to baseline Mental Status: mental status grossly normal Speech and Movement: speech and movement normal Mood: congruent mood Affect: normal affect Exam Const General: cooperative and no acute distress Nutritional Appearance: average body habitus Resp Effort & Inspection: normal respiratory effort Auscultation: clear to auscultation bilaterally Cardio Jugular venous pressure: no JVD Rate: regular rate Rhythm: regular rhythm Heart Sounds: S1 normal and S2 normal GI Inspection: normal to inspection Palpation: soft and nontender Auscultation: normal bowel sounds Extrem General: no pedal edema and no calf tenderness Psych Mental Status: mental status grossly normal Speech and Movement: speech and movement normal Mood: congruent mood Affect: normal affect DS: Data Vitals/I&O Vitals and I&O: Vital Signs Temperature 36.9 C 05/14/20 04:22 Temperature Source Temporal Artery Scan 05/14/20 04:22 Pulse 74 05/14/20 06:02 Pulse 77 05/14/20 06:02 Respiratory Rate 29 H 05/14/20 06:02 Respiratory Effort 05/14/20 04:22 Respiratory Depth Normal 05/14/20 04:22 Respiratory Pattern Normal 05/14/20 04:22 Blood Pressure 124/107 H 05/14/20 06:02 Blood Pressure Mean 111 05/14/20 06:02 Blood Pressure Position Supine 05/14/20 04:22 Pulse Oximetry 96 05/14/20 06:02 Oxygen Delivery Method Room Air 05/14/20 04:22 Oxygen Flow Rate 0 05/14/20 04:22 Pain Level 0 05/14/20 04:22 Intake & Output 05/13/20 05/13/20 05/14/20 11:59 23:59 11:59 Intake Total 852.5 / 852.5 Output Total 200 / 200 Balance 852.5 / 852.5 -200 / -200 Weight 55.8 kg 56.6 kg Intake: IV 762.5 / 762.5 Oral 90 / 90 Output: Urine 200 / 200 Other: Urine Color Yellow Urine Appearance Clear Urine Odor Normal Comment small void, unable to measure or perform dipstick, urine is fully absorbed in toilet paper. Voiding Methods Bedside Commode Data Completed and Pending Labs on day of discharge: Labs from last 24 hours 05/14/20 05/13/20 05/13/20 06:12 19:40 18:20 WBC RBC Hgb Hct MCV MCH MCHC RDW Plt Count MPV Immature Gran % Neutrophils % Lymphocytes % Monocytes % Eosinophils % Basophils % Nucleated RBC % Absolute Neutrophils Absolute Lymphocytes Absolute Monocytes Absolute Eosinophils Absolute Basophils Sodium Potassium 3.0 L Chloride Carbon Dioxide Anion Gap BUN Creatinine Estimated GFR/1.73 m2 Glucose Calcium Magnesium Total Bilirubin AST ALT Alkaline Phosphatase Troponin I < 0.05 < 0.05 Total Protein Albumin COVID-19 Source Nasopharynx SARS-CoV-2 (PCR) Negative Influenza Type A (PCR) Negative Influenza Type B (PCR) Negative RSV (PCR) Negative 05/13/20 05/13/20 17:08 17:08 WBC 5.96 RBC 4.46 Hgb 14.2 Hct 41.8 MCV 93.7 MCH 31.8 MCHC 34.0 RDW 12.4 Plt Count 198 MPV 11.0 Immature Gran % 0.0 Neutrophils % 51.0 Lymphocytes % 34.6 Monocytes % 11.2 Eosinophils % 2.2 Basophils % 1.0 Nucleated RBC % 0 Absolute Neutrophils 3.04 Absolute Lymphocytes 2.06 Absolute Monocytes 0.67 Absolute Eosinophils 0.13 Absolute Basophils 0.06 Sodium 140 Potassium 2.8 L* Chloride 103 Carbon Dioxide 25.7 Anion Gap 11.3 H BUN 17 Creatinine 0.7 Estimated GFR/1.73 m2 >= 60.00 Glucose 134 H Calcium 9.3 Magnesium 2.2 Total Bilirubin 0.6 AST 19 ALT 18 Alkaline Phosphatase 81 Troponin I < 0.05 Total Protein 7.6 Albumin 3.8 COVID-19 Source SARS-CoV-2 (PCR) Influenza Type A (PCR) Influenza Type B (PCR) RSV (PCR) [facility] Medical History Abdominal/pelvic symptom Anatomical narrow angle of right eye Anatomical narrow angle, left eye (12/09/17) Canker sores oral Essential hypertension (07/23/13) Gastroesophageal reflux disease (08/29/17) Hypothyroidism (02/22/92) IBS (irritable bowel syndrome) Impaired fasting glucose (02/22/04) Left hand pain (08/29/17) Nuclear sclerotic cataract of left eye (12/09/17) Nuclear sclerotic cataract of right eye Right carpal tunnel syndrome Surgical History section History of bilateral ligation of fallopian tubes History of section Ligation of fallopian tube S/P cataract surgery (12/09/17) Family History Mother , 92 Heart disease Father , 90 Heart disease Sister , 66 Heart disease Sister No problems noted. Son No problems noted. Son No problems noted. Son No problems noted. Daughter No problems noted. Sister , age 80 No problems noted. Social History Smoking/Tobacco Use Status: Former Tobacco Use Smoking risk assessment performed?: Yes Alcohol Intake: never Drug use: Never Substance use type: does not use Counseling given: No Counseling provided: none Caregiver/Support person: No Household members: none Housing: house Number of Children: 4 number of grandchildren: 9 Communication Needs: None Do you need help understanding health information?: Rarely Pets and animals: Yes Pets and animals: cat(s) and dog(s) Sexually active: No Current gender identity: female What is your relationship status?: How often do you talk on the phone with friends or family?: three or more times per week How often do you get together with friends or relatives?: three or more times per week How often do you attend gnosticist or pentecostalism services?: decline to answer Do you belong to any clubs or organized social groups?: no Panel score (0-1 are the most socially isolated patients): 1 What type of physical activity do you participate in: walking Duration: 30-45 minutes/day Frequency: 5-6 times per week Janessa/Nondenominational: Shinto Special janessa needs: No Seatbelt use: always Helmet use: No Drive intox or ride w/intox driver's license examiner: No Do you feel safe at home: Yes Do you feel safe in your relationship?: Yes
== END 2020-05-14 10:15 | disposition home or self-care (01) | DRG 313 ==
LOC: ER 18:43 → ICU 20:06
PROVIDERS: Admitting Provider General Practice; Emergency Provider Emergency Medicine; Visit Provider General Practice
DX: R07.89 Other chest pain (principal); I10 Essential (primary) hypertension; R42 Dizziness and giddiness; E87.6 Hypokalemia; K21.9 Gastro-esophageal reflux disease without esophagitis; E03.9 Hypothyroidism, unspecified; K58.9 Irritable bowel syndrome, unspecified; R73.01 Impaired fasting glucose; Z87.891 Personal history of nicotine dependence
CPT/HCPCS: 36415; 80053; 93005; 96361; 96365; 99222; 99239; 99285; 71045; 83735; 84132; 84484; 85025; 93010; 99284; J3480

== ENCOUNTER 2020-05-19 01:02 | Outpatient (CLI) | payer MEDICARE, SELFPAY ==
--- NOTE | 2020-05-19 | DI.NM_ITS ---
APPROVED REPORT Exam: Exercise Treadmill Patient Location: Out-Patient Room/Bed: Stress Nurse: Kamala Mitchell RN Ordering Provider:MATTHEW OWENS, Contact Number: [phone] BMI: 26.39 Baseline Rhythm: Sinus Rhythm Indications: Chest pain, EKG changes. Medical History Medical History: HTN, GERD, Hypothyroidism Cardiac Medications: Hydrochlorothiazide, Omeprazole. Allergies: No known drug allergies Cardiac Risk Factors: HTN, FHX of CAD, Smoking (former) Previous Cardiac Procedures: None. Pretest Chest Pain Characteristics: None. Exercise History: Physically active Physical Disabilities: None. Lung Sounds: Clear to auscultation Heart Sounds: Regular Stress Test Details Test: Exercise stress testing was performed using a Juan Pablo protocol. Nuclear Acquisition: Rest Tc-99m/Stress Tc-99m 1 day Rest Isotope: Tc-99m Sestamibi. Dose: 9.2 Date: 05/19/2020 Injection Time: 1115 Stress Isotope: Tc-99m Sestamibi. Dose: 32.5 Date: 05/19/2020 Injection Time: 1240 HR Resting HR Supine: 85 bpm Max Heart Rate (APMHR): 139 bpm Resting HR Standin bpm Target HR (85% APMHR): 118 bpm Max HR Achieved: 128 bpm % of APMHR: 92 Recovery HR: 97 bpm HR response to stress: Normal HR response to stress BP Resting BP Supine: 140/82 mmHg Resting BP Standin/74 mmHg Max BP: 168/70 mmHg Recovery BP: 136/78 mmHg BP response to stress: Normal blood pressure response to stress. ECG Resting ECG: Sinus Rhythm Ectopy: None. Stress ECG: Sinus Tachycardia ST Change: No significant ST segment changes noted Arrhythmia: None. Recovery ECG: Sinus Rhythm Recovery ST Change: No significant ST segment changes noted Recovery Arrhythmia: None. Clinical Reason for Termination: Fatigue Stress Symptoms: General Fatigue Exercise duration: 6 min15 sec Highest Stage Reached: Stage 3: 3.4 mph at 14% grade. Exercise capacity: 7.42 METs Hightower Treadmill Score: 5.7 Rate Pressure Product: [id number] Stress ECG Conclusion 1. The resting EKG was within normal limits. The patient exercised on the Juan Pablo protocol and complet ed a workload of 7.42 METS, stopping due to fatigue 2. Normal heart rate and blood pressure response to exercise. The patient achieved 92% of predicted heart rate for age 3. There was no electrocardiographic evidence of myocardial ischemia 4. There were no dysrhythmias Hightower Treadmill Score is 5.7 which is Low risk. Stress Test Summary STAGE Time (mins) Speed (mph) Grade (%) HR BP SYMPTOMS METS Supine 85 140/82 Standing 86 138/74 1 3 1.7 10 117 150/76 4.6 2 6 2.5 12 126 7 1 min recovery 107 168/70 3 min recovery 96 154/72 6 min recovery 97 136/78 MPI Conclusion Normal myocardial perfusion without evidence of ischemia or infarction. Calculated EF is 77%
== END 2020-05-19 01:03 ==
LOC: DI 01:03
PROVIDERS: Visit Provider Family Medicine
DX: R07.9 Chest pain, unspecified (principal); I10 Essential (primary) hypertension; Z82.49 Family history of ischemic heart disease and other diseases of the circulatory system; Z87.891 Personal history of nicotine dependence; R94.31 Abnormal electrocardiogram [ECG] [EKG]
CPT/HCPCS: 78452; 93016; 93018; 93017

== ENCOUNTER 2020-09-09 03:03 | Outpatient (CLI) | payer MEDICARE, SELFPAY ==
[2020-09-09 09:19] LABS: ALT 18 U/L (14-59); AST 17 U/L (15-37); Albumin 3.7 g/dL (3.4-5.0); Alkaline Phosphatase 68 U/L (46-116); BUN 14 mg/dL (7-18); Bilirubin, Total 0.6 mg/dL (0.2-1.0); CREATININE 0.8 mg/dL (0.55-1.02); Chloride 105 mmol/L (98-107); Glucose 107 mg/dL (74-106); Potassium 3.8 mmol/L (3.5-5.1); Sodium 144 mmol/L (136-145); TSH (W/Ref FT4) 0.21 uIU/mL (0.36-3.74); Total Protein 6.9 g/dL (6.4-8.2)
[2020-09-09 09:39] LABS: FREE T4 1.39 ng/dL (0.76-1.46)
== END 2020-09-09 03:04 | disposition home or self-care (01) ==
DX: I10 Essential (primary) hypertension (principal); E03.9 Hypothyroidism, unspecified; G47.00 Insomnia, unspecified
CPT/HCPCS: 36415; 80053; 84439; 84443

== ENCOUNTER 2020-09-16 09:46 | Outpatient (CLI) | payer MEDICARE, SELFPAY ==
--- NOTE | 2020-09-16 09:30 | DI.RAD_ITS ---
Exam(s) XR HIP RT COMPLETE AP PELVIS EXAM: XR HIP RT COMPLETE AP PELVIS INDICATION: pain in right hip. COMPARISON: No exams were available for comparison TECHNIQUE: 2D digital imaging was performed. FINDINGS: The hip joint spaces are well maintained. There is bilateral symmetric acetabular spurring. The sit es are seen at the L iliac wings and greater trochanters. Spurring is noted at the SI joints. No vaishali ny erosions are seen. 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 DATA REPOSITORY: RADIATION DOSE DELIVERED:
== END 2020-09-16 09:47 | disposition home or self-care (01) ==
LOC: DIORS 09:46
PROVIDERS: Visit Provider Student in an Organized Health Care Education/Training Program
DX: M25.551 Pain in right hip (principal); M65.331 Trigger finger, right middle finger
CPT/HCPCS: 20550; 20610; 73502; J1030; J1040

== ENCOUNTER 2021-02-07 09:01 | Outpatient (CLI) | payer MEDICARE, SELFPAY ==
[2021-02-07 10:53] LABS: ALT 24 U/L (14-59); AST 23 U/L (15-37); Albumin 3.9 g/dL (3.4-5.0); Alkaline Phosphatase 75 U/L (46-116); BUN 24 mg/dL (7-18); Bilirubin, Total 0.6 mg/dL (0.2-1.0); CREATININE 0.7 mg/dL (0.55-1.02); Calcium 9.3 mg/dL (8.5-10.1); Chloride 109 mmol/L (98-107); Glucose 101 mg/dL (74-106); Potassium 3.5 mmol/L (3.5-5.1); Sodium 148 mmol/L (136-145); Total Protein 7.6 g/dL (6.4-8.2)
== END 2021-02-07 09:02 | disposition home or self-care (01) ==
LOC: LBO 09:01
DX: I10 Essential (primary) hypertension (principal); E03.9 Hypothyroidism, unspecified
CPT/HCPCS: 80053; 84439; 84443

== ENCOUNTER 2021-02-08 14:10 | Outpatient (CLI) | payer MEDICARE, SELFPAY ==
--- NOTE | 2021-02-08 13:30 | DI.RAD_ITS ---
Exam(s) XR SHOULDER LT COMPLETE 2+V EXAM: XR SHOULDER LT COMPLETE 2+V CLINICAL HISTORY: left shoulder pain TECHNIQUE: COMPARISON: CR,XR XR FOREARM RT from 05/31/2019 CR XR WRIST RT COMPLETE from 08/10/2019 CR XR WRIST RT COMPLETE from 08/10/2019 FINDINGS: Two views of the shoulder were obtained. The cartilaginous joint space of the glenohumeral joint alpa ears fairly well maintained. There is a calcific or ossific radiodensity projected over the joint wh ich may represent an osteophyte arising from the glenoid versus intra-articular or extra-articular ca lcification. There are moderate marginal osteophytes noted involving the humeral head and glenoid. Prominent hypertrophic changes of the acromioclavicular joint are also noted in there is an inferior acromial osteophyte. IMPRESSION: Degenerative changes as described above. RADIATION DOSE DELIVERED: Total DLP
== END 2021-02-08 14:11 | disposition home or self-care (01) ==
LOC: DIORS 14:10
PROVIDERS: Visit Provider Student in an Organized Health Care Education/Training Program
DX: M25.512 Pain in left shoulder (principal); M75.52 Bursitis of left shoulder; M75.42 Impingement syndrome of left shoulder; M75.22 Bicipital tendinitis, left shoulder; M19.012 Primary osteoarthritis, left shoulder
CPT/HCPCS: 20610; 99213; 73030; J1030

== ENCOUNTER 2021-02-24 03:28 | Outpatient (CLI) | payer MEDICARE, SELFPAY ==
[2021-02-24 10:31] LABS: TSH 0.71 uIU/mL (0.36-3.74)
== END 2021-02-24 03:29 | disposition home or self-care (01) ==
LOC: LBO 03:28
DX: E03.9 Hypothyroidism, unspecified (principal)
CPT/HCPCS: 36415; 84439; 84443

== ENCOUNTER → 2021-05-09 10:56 | Outpatient (BNVA) | payer MEDICARE, SELFPAY | PROVIDERS: Visit Provider Student in an Organized Health Care Education/Training Program | DX: M70.61 Trochanteric bursitis, right hip (principal); M65.331 Trigger finger, right middle finger; G89.29 Other chronic pain | CPT/HCPCS: 20600; 20610; 99214; J1030 ==

== ENCOUNTER 2021-05-25 04:22 | Outpatient (CLI) | payer MEDICARE, SELFPAY ==
[2021-05-25 11:24] LABS: TSH (W/Ref FT4) 0.75 uIU/mL (0.36-3.74)
== END 2021-05-25 04:23 | disposition home or self-care (01) ==
LOC: LBO 04:23
DX: E03.9 Hypothyroidism, unspecified (principal)
CPT/HCPCS: 36415; 84443

== ENCOUNTER 2021-09-29 02:24 | Outpatient (CLI) | payer MEDICARE, SELFPAY ==
[2021-09-29 09:00] LABS: ALT 19 U/L (14-59); AST 19 U/L (15-37); Albumin 3.7 g/dL (3.4-5.0); Alkaline Phosphatase 64 U/L (46-116); Anion Gap 5.8 mmol/L (3-11); BUN 19 mg/dL (7-18); Bilirubin, Total 0.7 mg/dL (0.2-1.0); CO2 29.2 mmol/L (21.0-32.0); CREATININE 0.7 mg/dL (0.55-1.02); Calcium 8.7 mg/dL (8.5-10.1); Chloride 104 mmol/L (98-107); Glucose 103 mg/dL (74-106); Potassium 3.7 mmol/L (3.5-5.1); Sodium 139 mmol/L (136-145); TSH (W/Ref FT4) 1.46 uIU/mL (0.36-3.74); Total Protein 7.2 g/dL (6.4-8.2)
== END 2021-09-29 02:25 | disposition home or self-care (01) ==
LOC: LBO 02:24
DX: E03.9 Hypothyroidism, unspecified (principal); K21.9 Gastro-esophageal reflux disease without esophagitis; I10 Essential (primary) hypertension
CPT/HCPCS: 36415; 80053; 84443

== ENCOUNTER → 2022-04-16 09:28 | Outpatient (BNVA) | payer MEDICARE, SELFPAY | PROVIDERS: PCP Nurse Practitioner Family; Referring Provider Nurse Practitioner Family; Visit Provider Student in an Organized Health Care Education/Training Program | DX: M65.331 Trigger finger, right middle finger (principal); M65.351 Trigger finger, right little finger; G56.01 Carpal tunnel syndrome, right upper limb | CPT/HCPCS: 99213 ==

== ENCOUNTER 2022-05-02 09:27 | Day surgery (SDC) | payer MEDICARE, SELFPAY ==
--- NOTE | 2022-05-02 07:26 | W.PM.DSUDISC ---
Date of service: 05/02/22 Time of Service: 07:35 Discharge Plan Disposition Patient Disposition: Home Condition: Good Discharge Details Reason For Visit: Right little trigger finger and carpal tunnel Attending Provider: Christopher Cooley Primary Care Provider: Arjun Ambrosio Home Meds and New Rx's Prescriptions: New acetaminophen 500 mg tablet 500 mg PO Q6H PRN (Reason: pain) Qty: 60 2RF ibuprofen 600 mg tablet 600 mg PO TID PRN (Reason: pain) Qty: 60 0RF hydrocodone-acetaminophen 5-325 mg tablet 1 tab PO Q6H PRN (Reason: severe pain) Qty: 4 0RF Rx Instructions: Take one tablet up to every 6 hours as needed for severe postoperative pain Continued triamcinolone acetonide 0.1 % cream 1 applic TP BID PRN (Reason: vulvanitis) Qty: 80 1RF Rx Instructions: 1 application to vulva 2x per day if needed. hydrochlorothiazide 12.5 mg capsule 12.5 mg PO DAILY Qty: 90 4RF levothyroxine 75 mcg tablet 75 mcg PO DAILY Qty: 90 3RF polyethylene glycol 3350 [Miralax] 17 gram/dose powder 17 g PO DAILY Qty: 510 6RF potassium chloride 10 mEq tablet extended release 10 meq PO DAILY Qty: 90 3RF Discontinued acetaminophen 500 mg tablet 500 mg PO TID PRN Discharge Instructions Stand Alone Forms: [place] C. Tunnel Release, [place] T. Finger Release Activity:: Elevate Remove Dressings/Wound Care:: 48 hours Shower/Bathe:: 48 hours Diet:: As Tolerated Discharge Orders Discharge Orders: Discharge Order (Routine); Ordered 05/02/22 Ordered By: Raquel Huffman
[2022-05-02 09:54] VITALS: BP 151/69; PULSE 87; RESP 16; TEMP 36.3; O2SAT 97
[2022-05-02] MEDS: Lactated Ringers 1,000 ML 80 ML IV (10:04)
--- NOTE | 2022-05-02 10:21 | W.ANESPRE ---
General Info Date of Service Date Performed: 05/02/22 Height: 4 ft 9 in Weight: 52.3 kg Body Mass Index (BMI): 24.9 Surgical Procedure: Operation Date: 05/02/22 11:10 Proposed Procedure Side Surgeon p Wrist ECTR Right Christopher Cooley MD s Trigger Finger Release, RMF, RLF Right Christopher Cooley MD Meds Allergies and Home Medications Allergies Allergy/AdvReac Type Severity Reaction Status Date / Time No Known Drug Allergies Allergy Unknown Verified 05/02/22 10:03 Home Medication Medication Instructions Recorded triamcinolone acetonide 0.1 % 1 applic topical BID PRN 01/15/22 topical cream vulvanitis #80 grams hydrochlorothiazide 12.5 mg capsule 12.5 mg PO DAILY #90 caps 02/05/22 levothyroxine 75 mcg tablet 75 mcg PO DAILY #90 tabs 02/05/22 polyethylene glycol 3350 17 17 g PO DAILY #510 grams 02/05/22 gram/dose oral powder (Miralax) potassium chloride 10 mEq 10 meq PO DAILY #90 tabs 02/05/22 tablet,extended release acetaminophen 500 mg tablet 500 mg PO Q6H PRN pain #60 tabs 05/02/22 hydrocodone 5 mg-acetaminophen 325 1 tab PO Q6H PRN severe pain #4 05/02/22 mg tablet tabs ibuprofen 600 mg tablet 600 mg PO TID PRN pain #60 tabs 05/02/22 Current Visit Medications: Current Medications Generic Name Dose Route Start Last Admin Trade Name Freq PRN Reason Stop Dose Admin Acetaminophen 650 mg 05/02/22 07:26 Acetaminophen 325 Mg Tab PO Q4H PRN PRN Hydrocodone Bitart/Acetaminophen 0 tab 05/02/22 07:26 Hydrocodone 5/Acetaminophen 325 Tab PO Q3H PRN PRN Pain Ringer's Solution 1,000 mls @ 80 mls/hr 05/02/22 06:00 05/02/22 10:04 IV 05/31/22 23:59 80 mls/hr INFUSION KENDALL Administration Cefazolin Sodium/Dextrose 2 gm in 50 mls @ 100 mls/hr 05/02/22 06:00 Ancef Duplex IVPB 05/02/22 16:00 PREOP KENDALL IV Miscellaneous Supplies 1 each 05/02/22 06:00 Iv Access IV 05/31/22 23:59 DIRECTED KENDALL Sodium Chloride 0 ml 05/02/22 06:00 Normal Saline Flush 10 Ml Syr IV 05/31/22 23:59 PRN PRN Sodium Chloride 0 ml 05/02/22 06:00 Normal Saline 10 Ml Vial IJ 05/31/22 23:59 DIRECTED PRN Sterile Water 0 ml 05/02/22 06:00 Water,Injection,Sterile 10 Ml Vial IJ 05/31/22 23:59 DIRECTED PRN PFSH Active Problems Active Problems: Problem Status Onset Code Trigger finger, right little finger M65.351 Advanced directives, counseling/discussion Z71.89 Arthritis of left acromioclavicular joint M19.012 Impingement syndrome of left shoulder M75.42 Bursitis of left shoulder M75.52 Tendinitis of long head of biceps brachii of left shoulder M75.22 Hypothyroidism E03.9 Trigger finger, right middle finger M65.331 Greater trochanteric bursitis of right hip M70.61 Chest pain R07.9 Impaired fasting glucose 02/22/04 R73.01 Hypothyroidism 02/22/92 E03.9 Gastroesophageal reflux disease 08/29/17 K21.9 Essential hypertension 07/23/13 I10 Right carpal tunnel syndrome G56.01 Numbness of right hand R20.0 IBS (irritable bowel syndrome) K58.9 Abdominal/pelvic symptom R19.8 Encounter for annual physical exam Z00.00 Canker sores oral K12.0 Osteoarthritis of hands, 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, M19.042 Basal cell carcinoma of skin C44.91 Bunion of right foot 10/15/16 M21.611 Lichen sclerosus et atrophicus of the vulva 07/27/14 N90.4 Osteoarthritis 07/27/14 M19.90 Right hand pain 08/09/15 M79.641 Right-sided low back pain without sciatica 01/20/15 M54.5 Rosacea 07/27/14 L71.9 Thoracic radiculopathy 04/07/15 M54.14 Nuclear sclerotic cataract of right eye H25.11 Anatomical narrow angle of right eye H40.031 Nuclear sclerotic cataract of left eye 12/09/17 H25.12 Anatomical narrow angle, left eye 12/09/17 H40.032 Medical History Medical History Left hand pain (08/29/17) Surgical History Surgical History section History of bilateral ligation of fallopian tubes History of section Ligation of fallopian tube S/P cataract surgery (12/09/17) Tobacco Smoking/Tobacco Use Status: Never Passive smoking exposure: Yes Second hand exposure: Yes Alcohol Alcohol Intake: never Substance Use Substance use: Never Substance use type: does not use Counseling provided: none Vital Signs and Lab Results Vital Signs Most Recent Vital Signs in EMR: Most Recent Vital Signs Temp Pulse Resp BP Pulse Ox 36.3 C L 87 16 151/69 H 97 05/02/22 09:54 05/02/22 09:54 05/02/22 09:54 05/02/22 09:54 05/02/22 09:54 Lab Results Blood Type / Crossmatch: No Data to Display Complete Blood Count: No Data to Display Complete Metabolic Panel: No Data to Display Liver Function Panel: No Data to Display Coagulation Panel: No Data to Display Cardiac Panel: No Data to Display Arterial Blood Gas: No Data to Display Venous Blood Gas: No Data to Display Pancreas Panel: No Data to Display Thyroid Panel: No Data to Display Infectious Disease: No Data to Display Blood Cultures: No Data to Display Toxicology Panel: No Data to Display Imaging and Studies Imaging and Studies Study information below may be from another EMR and interpreted by another provider. Please see original notes in EMR for more complete details. EKG Summary: 05/13/2020: Exam: Resting ECG Patient Location: E HR:99 bpm ECG Measurements Heart Rate 99 AXIS MN 197 P 44 QRSd 95 QRS 24 QT 354 T-5 QTc 455 Conclusion Sinus rhythm. Subtle persistent lateral st segment changes Stress Test Summary: 05/19/2020: Stress ECG Conclusion 1. The resting EKG was within normal limits. The patient exercised on the [place] protocol and completed a workload of 7.42 METS, stopping due to fatigue 2. Normal heart rate and blood pressure response to exercise. The patient achieved 92% of predicted heart rate for age 3. There was no electrocardiographic evidence of myocardial ischemia 4. There were no dysrhythmias Hightower Treadmill Score is 5.7 which is Low risk. Anesthesia Assessment and Plan Anesthesia History Personal History: No History of Anesthesia Complications Family History: No Family History of Anesthesia Complications Exercise Tolerance Exercise Tolerance: Metabolic Equivalents>4 Pertinent Negatives Pertinent Negatives: No Symptoms of GERD, No Major Cardiovascular Symptoms or Complaints and No Major Pulmonary Symptoms or Complaints Cardiac & Pulmonary Exam Cardiac Exam: Normal S1/S2 Heart Sounds Pulmonary Exam: Clear Bilateral Breath Sounds Implantable Cardiac Device Does patient have a Pacemaker or an ICD?: No Airway Exam Known Difficult Airway: No Mallampati Class: 2 Mouth Opening: Normal (> 3cm) Thyromental Distance: Greater than 3 cm Neck Range of Motion: Full ROM Neck Circumference: Normal Teeth Condition: Removable Dentures/Plates Upper and Removable Dentures/Plates Lower ASA Classification ASA Score: ASA 2 Emergency Case?: No NPO Status NPO Status: NPO Clears >2 hours, Solids >8 hours Anesthesia Plan Resuscitation Status: Full Code Anesthesia Technique: General Anesthesia Airway Planned: Natural Airway Monitors Used: Standard Monitors
[2022-05-02 10:22] VITALS: BMI 24.9
[2022-05-02] MEDS: ceFAZolin 2 GM/50 ML BAG IVPB (11:06)
[2022-05-02] MEDS: Lidocaine 1% Pres-Free W/EPI 1/200,000 10 ML VIAL (11:27)
[2022-05-02 11:37] VITALS: BP 107/55; PULSE 80; RESP 20; TEMP 36.2; O2SAT 97
--- NOTE | 2022-05-02 11:55 | W.ANESPOSTOP ---
Postoperative Evaluation Date, Time and Location Date Performed: 05/02/22 Time Performed: 11:55 Patient Location: Day Surgery Unit Vital Signs Most Recent Imported Vital Signs: Most Recent Vital Signs Temp Pulse Resp BP Pulse Ox 36.2 C L 80 20 107/55 L 97 05/02/22 11:37 05/02/22 11:37 05/02/22 11:37 05/02/22 11:37 05/02/22 11:37 Pain Score Most Recent Pain Score: Most Recent Pain Score Pain Level 0 05/02/22 11:37 Assessment Mental Status: Awake (Alert & Oriented to Patient Baseline) Airway and Respiratory Function: Patent airway with normal (patient baseline) respiratory exam Cardiovascular Function: Hemodynamically Stable Hydration Status: Adequately Hydrated Nausea & Vomiting: No Nausea or Vomiting Pain: Pt. Denies Any Pain Peripheral Nerve Block: Patient did not receive a nerve block
[2022-05-02 12:16] VITALS: BP 127/69; PULSE 85; RESP 16; TEMP 36.1; O2SAT 96
--- NOTE | 2022-05-03 15:43 | ROE_ITS ---
Date of service: 05/02/22 Time of Service: 11:00 Operative Note Operative Note DATE OF PROCEDURE: 05/02/22 PRE-OP DIAGNOSIS: Right Carpal Tunnel Syndrome, Right Middle and Little Finger Trigger Fingers POST-OP DIAGNOSIS: same PROCEDURE: Right Endoscopic Carpal Tunnel Release, Right Middle and Little Finger Trigger Releases SURGEON: Christopher Cooley ANESTHESIA TYPE: General:No Airway Refer to Anesthesia Record ESTIMATED BLOOD LOSS: 0 PATHOLOGY: none sent TOURNIQUET TIME: 15 COMPLICATIONS: None Patient was transported to: same day Patient's condition: stable Indications: I have seen Yoselin in clinic for symptoms of carpal tunnel syndrome. The numbness, tingling, and pain limited function. Clinical exam findings with nerve conduction tests confirmed the diagnosis of carpal tunnel syndrome. Nonoperative measures such as bracing, time, activity modifications had been tried but disability and pain persisted. I discussed carpal tunnel release with the patient. I reviewed the risks of the procedure to include, but not limited to, bleeding, infection, pain, stiffness, incomplete release, damage to nerves or vessels, persistent numbness, recurrence. Despite these risks, the patient elected to proceed. Additionally, Yoselin had ongoing symptoms of trigger fingers of the middle finger and little fingers. She had previous injections and has had surgical release of trigger fingers in the past as well. Given the persistence of the symptoms I did offer trigger finger releases. I reviewed the risk of this procedure to include bleeding, infection, pain, stiffness, recurrence, incomplete release, need for repeat procedures, damage nerves and vessels. Despite these risk, she elects to proceed with this as well at the same time. Findings: There was tightened carpal tunnel. This was dilated and released successfully with the endoscopic with increased space within the tunnel. The antebrachial fascia was released proximally freeing the median nerve at the wrist. A1 aleisha of the middle finger and little finger release without difficulty. Procedure Description: Yoselin was greeted in the preoperative holding area where the correct side was identified and marked. The consent was reviewed with the patient and signed. The history and physical was updated. All questions were answered. She was taken back to the operating room. The patient was placed into the supine position on the operating room table with the right arm on an arm board. A nonsterile tourniquet was placed high onto the arm. All bony prominences were well padded. Prophylactic antibiotics in the form of Cefazolin were administ ered. The right arm was then prepped with Chloraprep and draped in a standard fashion with stockinette and extremity drape. A timeout to confirm correct identity, side and site, procedure, allergies, anesthesia, and medical concerns was performed. The surgical site was marked in the volar wrist creases in line with the radial border of the fourth ray. This area was anesthetized with approximately 6cc of 1% Lidocaine. The limb was then exsanguinated with an Esmarch. The skin was incised with a 15 blade, approximately 1cm. The skin only was cut and the deeper tissue was dissected bluntly with a tenotomy scissor, avoiding passing nerve and venous structures. The fascia was penetrated and opened bluntly. A two-prong skin hook was placed under this proximal fascial edge. A series of h amate finders were used to identify and dilate the carpal tunnel. Synovial elevator was used to free synovial attachments to the underside of the transverse carpal ligament. My thumb was kept in the palm to sal the distal extent of the carpal tunnel and correctly position the hand. The [employer] endoscope was inserted without difficulty and without resistance. Excellent visualization showed horizontally running fibers of the transverse carpal ligament (TCL). The distal extent of the TCL was visualized and the end of the scope palpated with the thumb. The blade was elevated and withdrawn from distal to proximal. The TCL was split into two flaps. The endoscope was reinserted to confirm complete release and any remnant ligament was incised. The scope was withdrawn and the proximal aspect of the carpal tunnel was grossly inspected and appeared release with the median nerve visible. The antebrachial fascia at the level of the wrist was then freed from the overlying skin and then the underlying median nerve with blunt dissection. This was transected longitudinally for about 3cm proximal to the wrist incision. The wound was then irrigated with easy flow of irrigant distally and proximally. The incision was closed with a single 4-0 Nylon suture. The surgical site was marked as a longitudinal incision directly over the A1 aleisha of the middle and little fingers.? The areas overlying the metacarpal heads, was then anesthetized with 1% Lidocaine.? Starting with the little finger, a longitudinal incision was made through skin only, approximately 1cm.? The deep tissues were dissected bluntly.? Once the A1 aleisha and flexor tendons were identified the soft tissue including neurovascular structures were retracted medially and laterally.? There were no crossing structures over the A1 aleisha.? ? The proximal edge of the aleisha was identified and the aleisha was incised with tenotomy scissors.? There was a release of the tendons once this was fully released.? The tendons were then removed from the wound and inspected.? Excess synovium was resected.? The site was then once more inspected for any A0 aleisha or area of possible constriction.? The wound was then irrigated and the skin was closed with a 4-0 Nylon.? Moving to the middle finger, a longitudinal incision was made through skin only, approximately 1cm.? The deep tissues were dissected bluntly.? Once the A1 aleisha and flexor tendons were identified the soft tissue including neurovascular structures were retracted medially and laterally.? There were no crossing structures over the A1 aleisha.? ? The proximal edge of the aleisha was identified and the aleisha was incised with tenotomy scissors.? There was a release of the tendons once this was fully released.? The tendons were then removed from the wound and inspected.? The site was then once more inspected for any A0 aleisha or area of possible constriction.? The wound was then irrigated and the skin was closed with a 4-0 Nylon.? This was dressed with gauze and a Conform dressing.? The patient tolerated the procedure well and was returned to the Same Day Surgery area in a stable condition suffering no known complication.? The wound was dressed with Xeroform, Gauze, Kerlix and Tomas. The tourniquet was deflated with the initial dressing and held with some pressure. Blood flow returned easily to all digits with capillary refill less than 2 seconds. The patient tolerated the procedure well and was returned to the Same Day Surgery area in a stable condition suffering no known complication.
== END 2022-05-02 12:32 | disposition home or self-care (01) ==
PROVIDERS: PCP Nurse Practitioner Family; Visit Provider Student in an Organized Health Care Education/Training Program
PROC: 01N54ZZ Release Median Nerve, Percutaneous Endoscopic Approach (ICD-10-PCS; CPT 29848; principal; 2022-05-02 11:00)
PROC: (CPT 26055; 2022-05-02 11:00)
DX: G56.01 Carpal tunnel syndrome, right upper limb (principal)
CPT/HCPCS: 29848; J0690; J1885; J2405

== ENCOUNTER 2022-05-11 10:39 | Outpatient (CLI) | payer MEDICARE, SELFPAY ==
--- NOTE | 2022-05-11 10:29 | DI.RAD_ITS ---
Exam(s) XR FINGER LT LITTLE EXAM: XR FINGER LT LITTLE CLINICAL HISTORY: LEFT LITTLE FINGER INJURY. TECHNIQUE: 2D digital imaging was performed. Three views. COMPARISON: Left hand 26 February 2019 FINDINGS: BONES: Nondisplaced fracture noted at the distal aspect of the middle phalanx.. No bony destructive lesion is seen. JOINTS: No dislocation present. Degenerative changes at the distal interphalangeal joint, stable. SOFT TISSUE: Swelling. No foreign body. IMPRESSION: Nondisplaced fracture middle phalanx. DATA REPOSITORY: RADIATION DOSE DELIVERED:
== END 2022-05-11 10:40 | disposition home or self-care (01) ==
LOC: DIORS 10:39
PROVIDERS: PCP Nurse Practitioner Family; Referring Provider Nurse Practitioner Family; Visit Provider Physician Assistant
DX: S62.627A Displaced fracture of middle phalanx of left little finger, initial encounter for closed fracture; W19.XXXA Unspecified fall, initial encounter; G56.01 Carpal tunnel syndrome, right upper limb; Z98.890 Other specified postprocedural states
CPT/HCPCS: 73140

== ENCOUNTER 2022-09-28 15:18 | Outpatient (REF) | payer MEDICARE, SELFPAY ==
[2022-09-28 13:34] LABS: Anion Gap 10.2 mmol/L (3-11); BUN 15 mg/dL (7-18); CO2 27.8 mmol/L (21.0-32.0); CREATININE 0.8 mg/dL (0.55-1.02); Calcium 9.2 mg/dL (8.5-10.1); Chloride 104 mmol/L (98-107); Estimated GFR 73.06 (mL/min/1.73m2); Glucose 107 mg/dL (74-106); Potassium 3.4 mmol/L (3.5-5.1); Sodium 142 mmol/L (136-145); TSH (W/Ref FT4) 0.99 uIU/mL (0.36-3.74)
== END 2022-09-28 15:19 | disposition home or self-care (01) ==
LOC: LBN 15:18
PROVIDERS: PCP Nurse Practitioner Family; Visit Provider Nurse Practitioner Family
DX: E03.9 Hypothyroidism, unspecified (principal); I10 Essential (primary) hypertension
CPT/HCPCS: 80048; 84443

== ENCOUNTER → 2023-02-07 02:59 | Outpatient (CLI) | payer MEDICARE, SELFPAY ==
--- NOTE | 2023-02-07 | DI.DEXA_ITS ---
Exam(s) XR DEXA BONE DENSITY W/WO DYLAN EXAM: XR DEXA BONE DENSITY W/WO DYLAN CLINICAL HISTORY: POSTMENOPAUSAL Z78.0 SCREENING OSTEOPOROSIS Z13.820 TECHNIQUE: [employer] C densitometer analysis of left hip, lumbar spine and right forearm. La teral survey image of the thoracic and lumbar spine. COMPARISON: 2008 FINDINGS: Lateral view of the thoracic and lumbar spine shows no evidence of compression fractures. Bone mineral density measurements of the lumbar spine correspond to a total T-score of -0.6, in the normal range. This is a 3 percent increase from 2008. Bone mineral density measurements of the left hip correspond to a total T-score of -2.1. This repre sents a 7 percent decrease from 2008. The femoral neck T-score is -2.8, in the osteoporotic range.. Theright forearm bone mineral density measurements correspond to a T-score of the distal 3rd of -2.5 , in the osteoporotic range. The forearm was not analyzed on the previous exam.. IMPRESSION: Normal bone mineral density of the lumbar spine. 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
== END ==
PROVIDERS: Visit Provider Nurse Practitioner Family
DX: Z78.0 Asymptomatic menopausal state (principal); Z13.820 Encounter for screening for osteoporosis; M81.0 Age-related osteoporosis without current pathological fracture
CPT/HCPCS: 77080

== ENCOUNTER 2023-04-16 11:42 | Outpatient (CLI) | payer MEDICARE, SELFPAY ==
--- NOTE | 2023-04-16 09:15 | DI.RAD_ITS ---
Exam(s) XR HIP LT COMPLETE AP PELVIS EXAM: XR HIP LT COMPLETE AP PELVIS CLINICAL HISTORY: LEFT HIP PAIN. TECHNIQUE: 2D digital imaging was performed of the left hip. Two views were obtained. AP pelvis an d lateral left hip views were obtained. COMPARISON: CR XR HIP RT COMPLETE AP PELVIS from 09/16/2020 FINDINGS: BONES: No acute fracture is present. No bony destructive lesion is seen. JOINTS: No dislocation present. There are stable degenerative changes of the hips bilaterally. Mild degenerative changes are seen at the sacroiliac joints and in the lumbar spine. The symphysis pubis is unremarkable. SOFT TISSUE: Vascular calcifications are present. IMPRESSION: Stable hip arthrosis. DATA REPOSITORY: RADIATION DOSE DELIVERED:
== END 2023-04-16 11:43 | disposition home or self-care (01) ==
LOC: DIORS 11:43
PROVIDERS: Visit Provider Student in an Organized Health Care Education/Training Program
DX: M70.62 Trochanteric bursitis, left hip
CPT/HCPCS: 99213; 73502

== ENCOUNTER → 2023-10-31 13:28 | Outpatient (BNVA) | payer MEDICARE, SELFPAY | DX: M19.012 Primary osteoarthritis, left shoulder (principal); M75.42 Impingement syndrome of left shoulder; M75.52 Bursitis of left shoulder; M75.22 Bicipital tendinitis, left shoulder | CPT/HCPCS: 20610; J1010 ==

== ENCOUNTER 2024-01-14 01:56 | Outpatient (CLI) | payer MEDICARE, SELFPAY ==
[2024-01-14 10:02] LABS: HGB 14.2 g/dL (11.2-15.7); MCH 31.8 pg (27.0-33.0); MCV 96 fL (80-95); MPV 10.7 fL (8.0-11.0); Platelet Count 181 10^3/uL (130-400); RBC 4.46 10^6/uL (3.93-5.22); RDW 12.3 % (11.7-14.6); WBC 5.63 10^3/uL (4.4-10.8)
[2024-01-14 10:27] LABS: Hemoglobin A1C 5.7 % (<5.7)
[2024-01-14 11:21] LABS: ALT 20 U/L (14-59); AST 21 U/L (15-37); Albumin 3.8 g/dL (3.4-5.0); Alkaline Phosphatase 55 U/L (46-116); Anion Gap 5.3 mmol/L (3-11); BUN 16 mg/dL (7-18); Bilirubin, Total 0.69 mg/dL (0.2-1.0); CO2 31.7 mmol/L (21.0-32.0); CREATININE 0.8 mg/dL (0.55-1.02); Calcium 9.5 mg/dL (8.5-10.1); Chloride 105 mmol/L (98-107); Estimated GFR 72.16 (mL/min/1.73m2); Glucose 110 mg/dL (74-106); Potassium 3.7 mmol/L (3.5-5.1); Sodium 142 mmol/L (136-145); TSH 0.79 uIU/mL (0.36-3.74); Total Protein 7.7 g/dL (6.4-8.2)
== END 2024-01-14 01:57 ==
LOC: LBO 01:56
PROVIDERS: Visit Provider Nurse Practitioner Family
DX: E03.9 Hypothyroidism, unspecified (principal)
CPT/HCPCS: 36415; 80053; 85027; 83036; 84443

== ENCOUNTER 2024-02-05 11:02 | Outpatient (CLI) | payer MEDICARE, SELFPAY ==
--- NOTE | 2024-02-05 11:00 | DI.RAD_ITS ---
Exam(s) XR SHOULDER LT COMPLETE 2+V EXAM: XR SHOULDER LT COMPLETE 2+V CLINICAL HISTORY: LEFT SHOULDER PAIN. TECHNIQUE: 2D digital imaging was performed. Three views. COMPARISON: CR XR SHOULDER LT COMPLETE 2+V from 02/08/2021 FINDINGS: BONES: No acute fracture is present. No bony destructive lesion is seen. Prominent spurring at the u ndersurface of the acromion and greater tuberosity. JOINTS: No dislocation present. Glenohumeral joint space is maintained. [id number] spurring a t the glenoid. SOFT TISSUE: Normal. IMPRESSION: Prominent spurring at the undersurface of the acromion. DATA REPOSITORY: RADIATION DOSE DELIVERED:
== END 2024-02-05 11:03 | disposition home or self-care (01) ==
LOC: DIORS 11:03
PROVIDERS: PCP Nurse Practitioner Family; Referring Provider Nurse Practitioner Family; Visit Provider Student in an Organized Health Care Education/Training Program
DX: M19.012 Primary osteoarthritis, left shoulder (principal); M75.42 Impingement syndrome of left shoulder; M75.52 Bursitis of left shoulder; M75.22 Bicipital tendinitis, left shoulder
CPT/HCPCS: 99213; 73030

== ENCOUNTER 2024-02-13 02:18 | Outpatient (CLI) | payer MEDICARE, SELFPAY ==
--- NOTE | 2024-02-13 07:15 | DI.RAD_ITS ---
Exam(s) RF JOINT INJ. FLUORO GUID RAD EXAM: RF JOINT INJ. FLUORO GUID RAD CLINICAL HISTORY: L SHOULDER PAIN,BURSITIS,TENDINITIS,ARTHRITIS,IMPINGEMENT SYNDROME. TECHNIQUE: 2D and realtime digital imaging was performed. CONTRAST MATERIAL: [id number] cc Omnipaque 300 (see below) COMPARISON: Prior plain films reviewed FINDINGS: This therapeutic shoulder glenohumeral joint injection was performed the request the referring orthop edic surgeon. Patient was consented prior to this procedure. Patient was placed in the supine position on the fluoroscopy table. Using sterile technique and adequate skin-subcutaneous anesthesia, fluoroscopic guidance was used to advance a 22 gauge spinal needle into the glenohumeral joint via an anterior approach. Intra-articular position of the needle was confirmed with injection of 2 cc Omnipaque 300 Thereafter 40 milligrams Depo-Medrol and 3 cc 0.5 percent bupivacaine was injected into the joint spa ce. The needle was removed. Patient tolerated this procedure well and there were no intraprocedural complications. IMPRESSION: Successful left shoulder glenohumeral joint steroid injection RADIATION DOSE DELIVERED: Philr=1.51mGy
[2024-02-13] MEDS: Lidocaine 1% Pres-Free 30 ML VIAL IJ (13:55)
[2024-02-13] MEDS: Omnipaque 300 MG/ML 10 ML BTL IJ (13:56)
[2024-02-13] MEDS: Bupivacaine 0.5% Pres-Free 10 ML VIAL 30 ML IJ (13:58)
[2024-02-13] MEDS: methylPREDNISolone ACETATE 40 MG/ML VIAL IJ (13:59)
== END 2024-02-13 02:38 ==
LOC: DI 02:18
PROVIDERS: PCP Nurse Practitioner Family; Visit Provider Student in an Organized Health Care Education/Training Program
DX: M75.52 Bursitis of left shoulder (principal); M75.22 Bicipital tendinitis, left shoulder; M19.012 Primary osteoarthritis, left shoulder; M75.42 Impingement syndrome of left shoulder
CPT/HCPCS: 20610; 77002; J0665; J1010

== ENCOUNTER → 2024-11-11 10:37 | Outpatient (BNVA) | payer MEDICARE, SELFPAY | PROVIDERS: PCP Nurse Practitioner Family; Referring Provider Nurse Practitioner Family; Visit Provider Student in an Organized Health Care Education/Training Program | DX: M75.52 Bursitis of left shoulder (principal); M75.22 Bicipital tendinitis, left shoulder; M19.012 Primary osteoarthritis, left shoulder; M75.42 Impingement syndrome of left shoulder | CPT/HCPCS: 99213 ==

== ENCOUNTER 2024-11-18 01:16 | Outpatient (CLI) | payer MEDICARE, SELFPAY ==
--- NOTE | 2024-11-18 07:00 | DI.RAD_ITS ---
Exam(s) RF JOINT INJ. FLUORO GUID RAD EXAM: RF JOINT INJ. FLUORO GUID RAD CLINICAL HISTORY: L SHOULDER PAIN,fluoro guided injection,bursitis,tendinitis,arthritis lt ac. The Patient has had persistent left shoulder pain. Noninvasive measures have been tried. To serve as both diagnostic and therapeutic, an injection under fluoroscopy was recommended. The risks of the procedure were discussed with their Orthopedic provider and the patient elected to proceed. TECHNIQUE: 2D and realtime digital imaging was performed. CONTRAST MATERIAL: Water soluble contrast was utilized. COMPARISON: No exams were available for comparison FINDINGS: The Patient was greeted in the fluoroscopy room. The correct side was identified and the consent was reviewed with the patient and was signed. The patient was properly positioned on the fluoroscopy table. The left shoulderwas then prepped and draped. The left shoulder injection starting point was i dentified by the bony landmarks and fluoroscopy. The skin and soft tissue in the tract of the injection was anesthetized with 0.25% Bupivacaine. A spinal needle was then inserted into the left shoulder joint at the level of the glenohumeral joint under fluoroscopic guidance. A small amount of Omnipaque solution was injected to confirm intraarticular placement. Once confirmed, the left shoulder was injected with 5cc of a solution containing 0.25% Bupivacaine and 40 mg of Depo-Medrol. A bandaid was placed on the injection site. The patient tolerated the procedure well and left the department in good condition. IMPRESSION: Successful left shoulder injection. RADIATION DOSE DELIVERED: Ka,r=1.01 mGy
[2024-11-18] MEDS: Normal Saline - Diluent 50 ML VIAL IJ (11:13)
[2024-11-18] MEDS: methylPREDNISolone ACETATE 40 MG/ML VIAL IJ (11:14)
[2024-11-18] MEDS: Omnipaque 300 MG/ML 10 ML BTL IJ (11:15)
[2024-11-18] MEDS: Bupivacaine 0.25% Pres-Free 10 ML VIAL IJ (11:16)
== END 2024-11-18 01:36 ==
LOC: DI 01:16
PROVIDERS: PCP Nurse Practitioner Family; Visit Provider Student in an Organized Health Care Education/Training Program
DX: M75.42 Impingement syndrome of left shoulder (principal)
CPT/HCPCS: 20610; 77002; J0665; J1010

== ENCOUNTER 2025-01-12 12:15 | Outpatient (REF) | payer MEDICARE, SELFPAY ==
[2025-01-12 18:07] LABS: Anion Gap 9.7 mmol/L (3-11); BUN 15 mg/dL (7-18); CO2 26.3 mmol/L (21.0-32.0); Calcium 8.9 mg/dL (8.5-10.1); Chloride 103 mmol/L (98-107); Estimated GFR 87.36 (mL/min/1.73m2); Glucose 107 mg/dL (74-106); Potassium 3.9 mmol/L (3.5-5.1); Sodium 139 mmol/L (136-145); TSH 0.55 uIU/mL (0.36-3.74); Vitamin D 25 Total 27 ng/mL (30-100)
== END 2025-01-12 12:16 | disposition home or self-care (01) ==
LOC: NCHCN 12:15
PROVIDERS: PCP Nurse Practitioner Family; Visit Provider Family Medicine
DX: I10 Essential (primary) hypertension (principal); M81.0 Age-related osteoporosis without current pathological fracture; E03.9 Hypothyroidism, unspecified
CPT/HCPCS: 80048; 82306; 84439; 84443

== ENCOUNTER 2025-02-08 08:44 | Emergency (ER) | payer MEDICARE, SELFPAY ==
--- NOTE | 2025-02-08 08:49 | W.ED.GENAD ---
Discharge Plan Disposition Patient Disposition: Home Discharge Details Clinical Impression: Pain of left calf, Hypokalemia Primary Care Provider: Rayne Rubin ED Provider: Chai Whittaker Home Meds and New Rx's Prescriptions: Continued triamcinolone acetonide 0.1 % cream 1 applic TP BID PRN (Reason: vulvanitis) Qty: 80 1RF Rx Instructions: 1 application to vulva 2x per day if needed. levothyroxine 75 mcg tablet 75 mcg PO DAILY Qty: 90 3RF polyethylene glycol 3350 17 gram/dose powder See Rx Instructions .ROUTE .COMPLEX Qty: 510 6RF Dose Instruction: TAKE 17 GRAMS MIXED IN LIQUID DAILY Rx Instructions: TAKE 17 GRAMS MIXED IN LIQUID DAILY potassium chloride 10 mEq tablet extended release See Rx Instructions .ROUTE .COMPLEX Qty: 90 3RF Dose Instruction: TAKE ONE TABLET BY MOUTH EVERY DAY Rx Instructions: TAKE ONE TABLET BY MOUTH EVERY DAY hydrochlorothiazide 12.5 mg capsule See Rx Instructions .ROUTE .COMPLEX Qty: 90 4RF Dose Instruction: TAKE ONE CAPSULE BY MOUTH EVERY DAY Rx Instructions: TAKE ONE CAPSULE BY MOUTH EVERY DAY alendronate 70 mg tablet 70 mg PO QWEEK acetaminophen 500 mg tablet 500 mg PO Q6H PRN (Reason: pain) Qty: 60 2RF cholecalciferol (vitamin D3) [Vitamin D3] 25 mcg (1,000 unit) capsule 25 mcg PO DAILY Discharge Instructions Additional Instructions: [facility] Emergency Department for calf pain. Your blood work showed that your potassium was just slightly low though I do not feel that this is causing your symptoms. You have no sign of a blood clot in your legs. As we discussed if you develop worsening pain any skin changes on your leg or any fevers please return to the emergency department. For your pain please take medications as follows: 1. Take acetaminophen (Tylenol), 650 mg every 6 hours [2. Take ibuprofen (Advil), 400 mg every 8 hours.] Stand Alone Forms: Portal Information HPI General Date/Time Provider Initiated Documentation: 02/08/25 08:48. HPI Narrative: MDM This is a quite well-appearing normothermic and not tachycardic 84-year-old female with calf pain for which patient will undergo formal radiology duplex study to assess for DVT. No erythema to suggest cellulitis. No fluctuance to suggest abscess. No pain out of proportion to suggest necrotizing soft tissue infection. Patient has no history of diabetes nor tobacco use and has intact pulses and a warm and well-perfused left foot so I am not concerned for critical limb ischemia so I did not feel patient required an angiogram of her abdomen pelvis with runoffs as I am not concerned for critical limb ischemia. No trauma to calf and negative Fu's sign so I am not suspicious for an Achilles tendon rupture. No rash to suggest zoster. Will obtain electrolytes to assess for any hypokalemia and a CK level to assess for rhabdomyolysis. Patient is not anticoagulated so my suspicion for spontaneous hematoma is low. No chest pain to suggest PE and no shortness of breath so I did not send a D-dimer. No joint effusion to suggest septic joint. No joint pain to suggest gouty arthritis. Will reassess following labs and imaging. 9:34 AM CBC lacks anemia thrombocytopenia and leukocytosis. Normal reassuring CK. Basic metabolic panel with mild hyperglycemia. No anion gap. Normal bicarbonate. No RENETTA. Very mild hypokalemia with a serum potassium of 3.4 mmol/L. Given the mild nature of the patient's hypokalemia I did not feel she required an ECG. She is on hydrochlorothiazide which could be causing her mild hypokalemia. Given that it is mild we will not have her discontinue this medication as of yet. 3:58 PM Complete chart due to patient care. I met with the patient following her ultrasound. She had no signs of DVT. I advised her that she should return to the ED if she developed a rash to her calf if she develop worsening pain if she took any falls or if she had any other concerns. I advised that she rest today. She reports that she walks frequently and I advised that she could continue her daily walks if her calf was not bothering her tomorrow. We discussed that she should return if she developed any fevers or had any other concerns. Her tachycardia resolved in the ED. She understood her return indications and was discharged with an empiric trial of expectant outpatient management. HPI This is a patient presenting with left calf pain. The patient reports experiencing discomfort in her left calf, which began on the night of 02/05/2025 while she was sleeping, and was severe enough to wake her up. The pain is constant, although it varies in intensity. She recalls a similar episode a few weeks prior, which resolved spontaneously. She has no history of thrombosis in the lower extremities, recent surgical interventions, or prolonged immobility due to travel. There is no reported trauma to the area or any unusual activities on the day of onset. She retains full mobility in the foot and is able to ambulate without difficulty. She does not experience any associated chest pain, shortness of breath, abdominal pain, nausea, vomiting, knee pain, or burning during urination. She also reports no history of smoking or diabetes. Exam General: Well-appearing in no acute distress speaking in complete sentences. Head: Normocephalic, atraumatic. Eye: Extraocular eye movements intact. No conjunctival injection. No scleral icterus. Ear, nose, mouth, throat: Grossly normal inspection. Normal voice, handling secretions normally. Neck: Trachea midline. Cardiovascular: Well-perfused distal extremities. Respiratory: Nonlabored respiration. Clear lungs bilaterally. Gastrointestinal: Nondistended abdomen. Soft. Nontender. No rebound. No guarding Musculoskeletal: No edema. Moving all 4 extremities spontaneously. Mild left-sided calf tenderness. Negative Fu sign. Negative Homans' sign. Intact PT and DP pulses. 5 out of 5 left foot strength dorsi and plantarflexion. No knee tenderness. No ankle nor foot tenderness. No erythema to left calf. No left calf fluctuance. No rash to left calf. Cap refill less than 2 seconds in left toes. Skin: Normal for age and race, grossly normal temperature and turgor. No acute rash. GCS 15. Neurologic: Alert and appropriate, no apparent acute deficits. Psychiatric: Mood and manner are appropriate. Grooming and personal hygiene are appropriate. Related Data Home Medications Medication Instructions Recorded Confirmed triamcinolone acetonide 0.1 % 1 applic topical BID PRN 01/15/22 02/08/25 topical cream vulvanitis #80 grams levothyroxine 75 mcg tablet 75 mcg PO DAILY #90 tabs 02/05/22 02/08/25 acetaminophen 500 mg tablet 500 mg PO Q6H PRN pain #60 tabs 05/02/22 02/08/25 polyethylene glycol 3350 17 See Rx Instructions .Route 09/21/22 02/08/25 gram/dose oral powder .COMPLEX #510 grams potassium chloride 10 mEq See Rx Instructions .Route 01/29/23 02/08/25 tablet,extended release .COMPLEX #90 tabs hydrochlorothiazide 12.5 mg capsule See Rx Instructions .Route 04/29/23 02/08/25 .COMPLEX #90 caps alendronate 70 mg tablet 70 mg PO QWEEK 07/06/24 02/08/25 cholecalciferol (vitamin D3) 25 25 mcg PO DAILY 02/08/25 02/08/25 mcg (1,000 unit) capsule (Vitamin D3) Previous Rx's Medication Instructions Recorded triamcinolone acetonide 0.1 % 1 applic topical BID PRN 01/15/22 topical cream vulvanitis #80 grams levothyroxine 75 mcg tablet 75 mcg PO DAILY #90 tabs 02/05/22 acetaminophen 500 mg tablet 500 mg PO Q6H PRN pain #60 tabs 05/02/22 polyethylene glycol 3350 17 See Rx Instructions .Route 09/21/22 gram/dose oral powder .COMPLEX #510 grams potassium chloride 10 mEq See Rx Instructions .Route 01/29/23 tablet,extended release .COMPLEX #90 tabs hydrochlorothiazide 12.5 mg capsule See Rx Instructions .Route 04/29/23 .COMPLEX #90 caps Allergies Allergy/AdvReac Type Severity Reaction Status Date / Time No Known Drug Allergies Allergy Unknown Other (See Verified 02/08/25 08:58 Comment) General GAGE: 2 PFSH All Active Problems (Updated 02/08/25 @ 10:05 by Chai Whittaker MD) Hypokalemia (Acute) Pain of left calf (Acute) Trochanteric bursitis of left hip (Acute) Closed fracture of middle phalanx of left little finger (Acute ~05/08/22) Advanced directives, counseling/discussion (Acute) Arthritis of left acromioclavicular joint (Acute) Impingement syndrome of left shoulder (Acute) Bursitis of left shoulder (Acute) Tendinitis of long head of biceps brachii of left shoulder (Acute) Hypothyroidism (Chronic) Greater trochanteric bursitis of right hip (Acute) Chest pain (Acute) Impaired fasting glucose (Acute 02/22/04) Hypothyroidism (Acute 02/22/92) Gastroesophageal reflux disease (Acute 08/29/17) Essential hypertension (Acute 07/23/13) Numbness of right hand (Acute) IBS (irritable bowel syndrome) (Chronic) Abdominal/pelvic symptom (Acute) Encounter for annual physical exam (Acute) Canker sores oral (Acute) Osteoarthritis of hands, bilateral (Acute) Basal cell carcinoma of skin (Acute) Bunion of right foot (Acute 10/15/16) Lichen sclerosus et atrophicus of the vulva (Acute 07/27/14) Osteoarthritis (Acute 07/27/14) Right hand pain (Acute 08/09/15) Right-sided low back pain without sciatica (Acute 01/20/15) Rosacea (Acute 07/27/14) Thoracic radiculopathy (Acute 04/07/15) right (neg chest and abdominal CT) Medical History (Updated 02/08/25 @ 10:05 by Chai Whittaker MD) Hx of malignant neoplasm of skin Essential hypertension Lichen sclerosus Bunion Low back pain GERD without esophagitis Idiopathic osteoarthritis Biceps tendinitis Pain, joint, shoulder, left Left hand pain (08/29/17) Surgical History (Updated 05/11/22 @ 10:56 by CAROLE Bonilla) Trigger finger, right little finger S/P Release: 05/02/2022 Trigger finger, right middle finger S/P Release: 05/02/2022 Right carpal tunnel syndrome S/P ECTR: 05/02/2022 History of bilateral ligation of fallopian tubes History of section S/P cataract surgery (12/09/17) Ligation of fallopian tube section Family History Mother , 92 Heart disease Father , 90 Heart disease Sister , 66 Heart disease Sister No problems noted. Son No problems noted. Son No problems noted. Son No problems noted. Daughter No problems noted. Sister , age 80 No problems noted. Social History (Updated 10/02/22 @ 15:52 by Shey Aguila) Smoking/Tobacco Use Status: Never Second Hand Exposure: No Smoking risk assessment performed?: Yes Alcohol Intake: never Drug use: Never Substance use type: does not use Counseling given: No Counseling provided: none Caregiver/Support person: No Household members: none Housing: apartment Number of Children: 4 number of grandchildren: 9 Communication Needs: None Do you need help understanding health information?: Rarely Pets and animals: Yes Pets and animals: cat(s) and dog(s) Sexually active: No Do you think of yourself as: straight/heterosexual Current gender identity: female What is your relationship status?: How often do you talk on the phone with friends or family?: decline to answer How often do you get together with friends or relatives?: decline to answer How often do you attend mandaen or anglican services?: decline to answer Do you belong to any clubs or organized social groups?: decline to answer Panel score (0-1 are the most socially isolated patients): 0 What type of physical activity do you participate in: walking Duration: 45-60 minutes/day Frequency: daily Special john needs: No Seatbelt use: always Helmet use: No Drive intox or ride w/intox sulky driver: No Do you feel safe at home: Yes Do you feel safe in your relationship?: Yes
[2025-02-08 08:54] VITALS: BP 165/63; PULSE 106; RESP 18; TEMP 36.6; O2SAT 98
--- NOTE | 2025-02-08 09:00 | DI.US_ITS ---
Exam(s) US LOWER EXTREMITY VENOUS LT EXAM: US LOWER EXTREMITY VENOUS LT CLINICAL HISTORY: Left calf pain. TECHNIQUE: Lower extremity venous ultrasound performed using grayscale, color- flow, and spectral Doppler analysis. COMPARISON: No exams were available for comparison FINDINGS: The common femoral, femoral and popliteal veins demonstrate normal compressibility, augmentation, and color Doppler. The posterior tibial and peroneal veins are patent. No saphenous vein thrombosis or other superficial venous thrombosis is seen. No hematoma or Womack's cyst is seen. IMPRESSION: Negative lower extremity ultrasound. No evidence of DVT. DATA REPOSITORY:
[2025-02-08 09:22] VITALS: RESP 18
[2025-02-08 09:28] LABS: Abs Immature Grans 0.02 10^3/uL (0.0-0.06); HCT 43.2 % (36.0-46.0); HGB 14.2 g/dL (11.2-15.7); Immature Grans % 0.3 %; MCH 30.5 pg (27.0-33.0); MCHC 32.9 % (32.0-36.0); MCV 93 fL (80-95); MPV 10.9 fL (8.0-11.0); Platelet Count 194 10^3/uL (130-400); RBC 4.65 10^6/uL (3.93-5.22); RDW 12.6 % (11.7-14.6); RDW-SD 43.4 fL; WBC 6.19 10^3/uL (4.4-10.8)
[2025-02-08 09:40] LABS: Anion Gap 9.8 mmol/L (3-11); BUN 13 mg/dL (9-23); CO2 27.2 mmol/L (20.0-31.0); Calcium 9.1 mg/dL (8.3-10.6); Chloride 105 mmol/L (98-107); Creatine Kinase 90 U/L (34-145); Glucose 127 mg/dL (74-106); Potassium 3.4 mmol/L (3.5-5.1); Sodium 142 mmol/L (136-145)
[2025-02-08] MEDS: Acetaminophen 325 MG TAB 650 MG PO (10:08)
[2025-02-08] MEDS: Ibuprofen 400 MG TAB PO (10:09)
[2025-02-08 10:18] VITALS: BP 173/70; PULSE 96; RESP 18; O2SAT 99
== END 2025-02-08 10:19 | disposition home or self-care (01) ==
LOC: ER 10:22
PROVIDERS: Emergency Provider Emergency Medicine; PCP Nurse Practitioner Family
DX: M79.662 Pain in left lower leg (principal); E87.6 Hypokalemia
CPT/HCPCS: 99283; 99284; 36415; 80048; 82550; 85025; 93971